=== PATIENT | female | born 1995 | race Caucasian/White ===

== ENCOUNTER 2018-02-28 17:55 | Outpatient (CLI) | payer BC, OTHER ==
[2018-02-28 18:30] VITALS: RESP 16; TEMP 97.4
[2018-02-28 19:45] VITALS: BP 108/61; PULSE 103
--- NOTE | 2018-03-01 11:23 | P.MSEPDOC ---
Presenting Problems - Arrival Data Date of Arrival on Unit: 02/28/18 Time of Arrival on Unit: 18:01 Mode of Transport: Ambulatory - Complaint OB-Reason for Admission/Chief Complaint: Possible Onset of Labor, Pain Medical History - Information : 2 Para: 1 Term: 0 : 1 Abortions: Spontaneous or Elective: 0 Number of Living Children: 1 - Gestational Age Gestational Age by LESLI (wks/days): 33 Weeks and 0 Days - History Complications: Prior Review of Systems - Review of Systems Constitutional: No problems Breast: No problems ENT: No problems Cardiovascular: No problems Respiratory: No problems Gastrointestinal: No problems Genitourinary: No problems Musculoskeletal: No problems Neurological: No problems Skin: No problems Vital Signs - Temperature Temperature: 97.4 F Temperature Source: Tympanic - Pulse Right Brachial Pulse Rate: 103 Pulse Assessment Method: Automatic Cuff - Respirations Respiratory Rate: 16 Oxygen Delivery Method: Room Air - Blood Pressure Right Arm Blood Pressure: 108/61 Blood Pressure Mean: 76 Blood Pressure Source: Automatic Cuff Medical Screen Scoring (Pre) - Cervical Exam Dilation: 0 cm = 0 Membranes: Intact - Uterine Contractions Frequency: N/A Duration: N/A Intensity: N/A - Maternal Vital Signs Maternal Temperature: N/A Maternal Blood Pressure: N/A Signs of Preeclampsia: N/A Maternal Respirations: N/A - Pain Assessment Pain Location and Character: Abdomen Pain Scale Used: Numeric (1 - 10) Pain Intensity: 6 Pain Management Goal: 2 Pain Description: *Acute Pain Radiation Location: na Pain Frequency: Intermittent Pain Duration: 15 Pain Duration Units: Minutes Pain Behavior: Vocalization Pain Aggravating Factors: None Non-Pharmacological Interventions: Position/Reposition, Relaxation Technique - Assessment Baseline FHR: 155 Heart Rate - NICHD Category: Category I (Normal) = 0 NST: Reactive Position: N/A Station: N/A - Total Score Total Score (Pre): 0 - Level of Risk Level of Risk: Low (0-5) Physician Notification (Pre) - Physician Notified Physician Notified Date: 02/28/18 Physician Notified Time: 18:15 Physician/Practitioner Notifed:: Dr. Diaz Spoke With: Dr. Diaz Medical Screen Scoring (Post) - Cervical Exam Dilation: Exam Deferred Effacement: Exam Deferred Membranes: Intact - Uterine Contractions Frequency: N/A Duration: N/A Intensity: N/A - Maternal Vital Signs Maternal Temperature: N/A Maternal Blood Pressure: N/A Signs of Preeclampsia: N/A - Pain Assessment Pain Location and Character: Generalized Pain Scale Used: Numeric (1 - 10) Pain Intensity: 1 Pain Management Goal: 0 Pain Description: *Acute, Cramping Pain Frequency: Intermittent Pain Duration Units: Minutes Pain Behavior: Vocalization - Maternal Trauma Maternal Trauma: N/A - Assessment Heart Rate: 145 Heart Rate - NICHD Category: Category I (Normal) = 0 NST: Reactive Position: N/A Station: N/A - Total Score Total Score (Post): 0 - Post Treatment Level of Risk Post Treatment Level of Risk: Low (0-5) Physician Notification (Post) - Notification Comment Comment: FFN negative. PT clear for discharge home per physician. Disposition - Disposition OB Disposition: Discharge to home Discharge Date: 02/28/18 Discharge Time: 19:32 I agree with the RN Medical Screening Exam: Yes Risk & Benefit of care provided described in d/c instruction: Yes Diagnosis: FALSE LABOR BEFORE 37 COMPLETED WEEKS OF GEST, THIRD TRI
== END 2018-02-28 19:32 | disposition home or self-care (01) ==
LOC: FBPOP 17:55
PROVIDERS: ATTEND Obstetrics & Gynecology
DX: O47.03 False labor before 37 completed weeks of gestation, third trimester (principal); Z3A.33 33 weeks gestation of pregnancy
CPT/HCPCS: 59025; 82731; 99213

== ENCOUNTER 2018-04-09 03:05 | Inpatient (IN) | payer BC, OTHER ==
[2018-04-09] MEDS ORDERED: OXYTOCIN 10 UNIT/ML 1 ML VIAL IM PRN (03:39)
[2018-04-09] MEDS ORDERED: CARBOPROST TROMETHAMINE 250 MCG/ML 1 ML AMP IM PRN (03:39)
[2018-04-09] MEDS ORDERED: LIDOCAINE 1% (PF) 10 MG/ML (30 ML SDV) SQ PRN (03:39)
[2018-04-09] MEDS ORDERED: TERBUTALINE 1 MG/ML VIAL SQ PRN (03:39)
[2018-04-09] MEDS ORDERED: METHYLERGONOVINE 0.2 MG/ML 1 ML AMP IM PRN (03:39)
[2018-04-09] MEDS ORDERED: BUTORPHANOL 1 MG/ML 1 ML VIAL IV PRN (03:40)
[2018-04-09 04:12] VITALS: BMI 32.9
[2018-04-09] MEDS: LACTATED RINGERS 1,000 ML IV SCH ×3 (04:22→14:55)
[2018-04-09 04:33] LABS: Basophils % (A) 0 %; Eosinophils # (A) 0.1 k/uL (0-0.7); Eosinophils % (A) 0 %; HGB 10.6 gm/dL (11.4-16.0); Hypochromasia Slight; Lymphocytes # (A) 2.2 k/uL (1.0-4.8); Lymphocytes % (A) 18 %; MCH 23.6 pg (25.0-35.0); MCHC 33.2 g/dL (31.0-37.0); MCV 71.1 fL (80.0-100.0); Mean Platelet Volume 7.8; Microcytosis Moderate; Monocytes # (A) 0.7 k/uL (0-1.0); Monocytes % (A) 6 %; Neutrophils % (A) 74 %; Platelet Count 282 k/uL (150-450); Poikilocytosis Slight; RBC 4.51 m/uL (3.80-5.40); RDW 15.7 % (11.5-15.5); WBC 12.1 k/uL (3.8-10.6)
--- NOTE | 2018-04-09 05:07 | P.HPOB ---
History of Present Illness H&P Date: 04/09/18 Chief Complaint: Leaking fluid and contractions. This patient is a pleasant 22-year-old 2 para 1 female estimated date of confinement 04/18/2018 estimated gestational age 38-5/7 weeks who presents to labor and delivery with complaint a gush of fluid at approximately 2:00 this morning. Patient's had a previous section with her first at 36 weeks secondary to an active herpes outbreak. Patient did receive progesterone since approximately 16 weeks in this . Patient has requested this and we have previously discussed benefits and risks. Patient has not had any recent HSV outbreaks and has been on prophylactic acyclovir since 36 weeks. Patient is now found to be in early labor with spontaneous rupture membranes. care otherwise has been uncomplicated. Review of Systems Gastrointestinal: Reports heartburn Genitourinary: Reports Menstruation: Reports amenorrhea Past Medical History Past Medical History: No Reported History History of Any Multi-Drug Resistant Organisms: None Reported Past Surgical History: Section Past Anesthesia/Blood Transfusion Reactions: No Reported Reaction Past Psychological History: No Psychological Hx Reported Smoking Status: Never smoker Past Alcohol Use History: Occasional Past Drug Use History: None Reported - Past Family History Father Family Medical History: No Reported History Medications and Allergies Home Medications Medication Instructions Recorded Confirmed Type Acyclovir 400 mg PO TID 04/09/18 04/09/18 History Pnv No.95/Ferrous Fum/Folic AC 1 each PO DAILY 04/09/18 04/09/18 History [ Multivitamin Tablet] Allergies Allergy/AdvReac Type Severity Reaction Status Date / Time codeine Allergy Nausea & Verified 04/09/18 03:17 Vomiting Exam Vital Signs Temp Pulse Resp BP Pulse Ox 04/09/18 03:39 97.3 F L 115 H 15 114/75 97 04/09/18 03:35 97.3 F L 115 H 16 114/75 Intake and Output 04/08/18 04/08/18 04/09/18 14:59 22:59 06:59 Other: Weight 87.09 kg - OBG Physical Exam Abdomen: bowel sounds normal, no diffuse tenderness, no bruit present, no guarding noted, no hepatomegaly, no splenomegaly, no mass Vulva: both: normal Vagina: normal moisture, no discharge Cervix: no lesion (Cervix is 2-3 cm with 2% effaced -2 station with gross rupture membranes.), no discharge Uterus: enlarged (Fundal height in the office is 38 cm.) Results labs show she is be positive, rubella immune, RPR nonreactive, hepatitis B negative, group B strep was negative, most recent ultrasound on March 14 showed estimated weight at 6 lbs. 3 oz. with normal growth. Result Diagrams: 04/09/18 04:20 Abnormal Lab Results - Last 24 Hours (Table) 04/09/18 Range/Units 04:20 WBC 12.1 H (3.8-10.6) k/uL Hgb 10.6 L (11.4-16.0) gm/dL Hct 32.0 L (34.0-46.0) % MCV 71.1 L (80.0-100.0) fL MCH 23.6 L (25.0-35.0) pg RDW 15.7 H (11.5-15.5) % Neutrophils # 9.0 H (1.3-7.7) k/uL Assessment and Plan Assessment: This is a pleasant 22-year-old 2 para 1 female 38-5/7 weeks' gestation with spontaneous rupture membranes in early labor. Patient's had a previous section for active HSV outbreak and has requested . She and I discussed vaginal after section the benefits and risks including risks of uterine rupture and maternal/ compromise. Patient wishes to proceed at this time. Patient understands that I will be here until approximately noon today and then Dr. Chapman will be taken over for her labor at that time. (1) SROM (spontaneous rupture of membranes) Current Visit: Yes Status: Acute Code(s): [id number] - SNOMED Code(s): 270769122 (2) Previous delivery affecting Current Visit: Yes Status: Acute Code(s): O34.219 - MATERNAL CARE FOR UNSP TYPE SCAR FROM PREVIOUS DEL SNOMED Code(s): 453306082
--- NOTE | 2018-04-09 05:11 | P.MSEPDOC ---
Presenting Problems - Arrival Data Date of Arrival on Unit: 04/09/18 Time of Arrival on Unit: 03:05 Mode of Transport: Wheelchair - Complaint OB-Reason for Admission/Chief Complaint: Rule Out SROM Medical History - Information : 2 Para: 1 Term: 0 : 0 Abortions: Spontaneous or Elective: 0 Number of Living Children: 1 - Gestational Age Gestational Age by LESLI (wks/days): 38 Weeks and 5 Days - History Sexually Transmitted Diseases: HSV Review of Systems - Review of Systems Constitutional: No problems Breast: No problems ENT: No problems Cardiovascular: No problems Respiratory: No problems Gastrointestinal: No problems Genitourinary: No problems Musculoskeletal: No problems Neurological: No problems Skin: No problems Vital Signs - Temperature Temperature: 97.3 F Temperature Source: Temporal Artery Scan - Pulse Right Brachial Pulse Rate: 115 Pulse Assessment Method: Automatic Cuff - Respirations Respiratory Rate: 15 Oxygen Delivery Method: Room Air O2 Sat by Pulse Oximetry: 97 - Blood Pressure Right Arm Blood Pressure: 114/75 Blood Pressure Mean: 88 Blood Pressure Source: Automatic Cuff Medical Screen Scoring (Pre) - Cervical Exam Dilation: 1-3 cm = 1 Membranes: Ruptured = 3 - Uterine Contractions Frequency: > or = 36 weeks =2 Duration: N/A Intensity: N/A - Maternal Vital Signs Maternal Temperature: N/A Maternal Blood Pressure: N/A Signs of Preeclampsia: N/A Maternal Respirations: N/A - Pain Assessment Pain Location and Character: Lower, Abdomen Pain Scale Used: Numeric (1 - 10) Pain Intensity: 4 Pain Description: Cramping Pain Frequency: Intermittent Pain Duration Units: Minutes Pain Behavior: Facial Grimacing Pain Aggravating Factors: Contractions - Maternal Trauma Maternal Trauma: N/A - Assessment Baseline FHR: 135 Heart Rate - NICHD Category: Category I (Normal) = 0 NST: Reactive Position: N/A - Total Score Total Score (Pre): 6 - Level of Risk Level of Risk: Medium (6-9) Physician Notification (Pre) - Physician Notified Physician Notified Date: 04/09/18 Physician Notified Time: 03:35 Physician/Practitioner Notifed:: Dr. Fulton Spoke With: Dr. Fulton New Order Received: Yes - Notification Comment Comment: Dr. Fulton given report on pt in triage. positive amnisure, vag exam of. 1.5/60/-2. . Orders recieved to admit pt. pt may have stadol for pain 1 mg q 2 hrs. No pitocin at this time. Disposition - Disposition OB Disposition: Admit I agree with the RN Medical Screening Exam: Yes Risk & Benefit of care provided described in d/c instruction: Yes Diagnosis: ENCOUNTER FOR FULL-TERM UNCOMPLICATED DELIVERY
[2018-04-09] MEDS: OXYTOCIN 20 UNITS/1000 ML NS 1,000 ML IV SCH ×2 (06:07→19:41)
[2018-04-09] MEDS ORDERED: ROPIVACAINE 100 MG, fentaNYL (PF) 200 MCG in SODIUM CHLORIDE 0.9% 76 ML EPIDURAL ONE (12:22)
[2018-04-09] MEDS ORDERED: AMPICILLIN 2,000 MG in SODIUM CHLORIDE 0.9% 100 ML IVPB STA (16:57)
[2018-04-09] MEDS ORDERED: SIMETHICONE 80 MG CHEWABLE PO PRN (18:57)
[2018-04-09] MEDS ORDERED: OXYTOCIN 20 UNITS/1000 ML NS 1,000 ML IV SCH (18:57)
[2018-04-09] MEDS ORDERED: HYDROCORTISONE 2.5% RECTAL CREAM 30 GM TUBE RECTAL PRN (18:57)
[2018-04-09] MEDS ORDERED: diphenhydrAMINE 25 MG CAP PO PRN (18:57)
[2018-04-09] MEDS ORDERED: BISACODYL 10 MG SUPP RECTAL PRN (18:57)
[2018-04-09] MEDS ORDERED: LANOLIN CREAM 5 GM TUBE TOPICAL PRN (18:57)
[2018-04-09] MEDS ORDERED: WITCH HAZEL 1 EACH MED..PAD TOPICAL PRN (18:57)
[2018-04-09] MEDS ORDERED: diphenhydrAMINE 50 MG/ML 1 ML VIAL IVP PRN (18:57)
[2018-04-09] MEDS ORDERED: BENZOCAINE/MENTHOL SPRAY 1 GM/SPRAY AEROSOL TOPICAL PRN (18:57)
[2018-04-09] MEDS ORDERED: ZOLPIDEM 5 MG TAB PO PRN (18:57)
--- NOTE | 2018-04-09 19:22 | P.PROBDLV ---
Vaginal Delivery Note - . Vaginal Delivery Note: 22 year old presents at 38 weeks 5 days with spontaneous rupture of membranes at 1:55 AM. She is amaya irregularly, heart tones 130- 135 with moderate variability and reactive. When she presented to the hospital her cervix was 2-3 cm dilated. Pitocin was started. When she was uncomfortable she got one dose of Stadol and then did get an epidural when she was making cervical change. Her cervix was completely dilated at 1819. She pushed, and delivered a viable male at 185. Head delivered OA, anterior shoulder delivered gentle downward guidance followed by posterior shoulder and rest of body. Nose and mouth bulb suctioned, cord clamped and cut , placed on mother's abdomen. Apgars 9, 9, weight 8 lbs. 2 oz. Placenta delivered spontaneously, intact with three-vessel cord at 1858. Vagina , cervix, and perineum were inspected. Third degree midline laceration was repaired with 2-0 and 3-0 Vicryl. Estimated blood loss 200 mL. Mother and baby in stable condition.
[2018-04-09] MEDS: SENNOSIDES-DOCUSATE SODIUM 1 EACH TAB PO SCH (20:20)
[2018-04-09] MEDS: IBUPROFEN 600 MG TAB PO PRN (20:21)
[2018-04-09] MEDS ORDERED: AMPICILLIN 1,000 MG in SODIUM CHLORIDE 0.9% 50 ML IVPB SCH (21:00)
[2018-04-10] MEDS: IBUPROFEN 600 MG TAB PO PRN ×3 (05:09→22:00)
--- NOTE | 2018-04-10 06:10 | P.PNOBGVD ---
Subjective - Subjective Patient reports: Reports appetite normal, Reports voiding normally, Reports pain well controlled, Reports ambulating normally : doing well Objective - Latest Vital Signs Latest vital signs: Vital Signs Temp Pulse Resp BP Pulse Ox 04/10/18 04:00 98 F 112 H 16 114/67 04/10/18 00:00 106 H 16 104/64 04/09/18 21:21 112 H 16 126/73 04/09/18 20:51 108 H 17 122/60 04/09/18 20:21 115 H 16 121/62 04/09/18 20:06 114 H 15 120/52 04/09/18 19:51 113 H 16 116/58 04/09/18 19:36 115 H 16 114/58 04/09/18 19:21 98.4 F 125 H 16 116/56 99 Intake and Output 04/09/18 04/09/18 04/10/18 14:59 22:59 06:59 Intake Total 40.7 Output Total 500 400 Balance -500 -359.3 Intake: Intake, IV Titration 40.7 Amount Oxytocin 20 Units/1000 ml 40.7 Ns 1,000 ml @ 1 MILLIUNIT/MIN 3 mls/hr IV .Q24H TAMMY Rx#:[id number] Output: Urine 500 Estimated Blood Loss 400 Other: # Voids 1 1 # Bowel Movements 1 - Exam Lungs: bilateral: normal Chest: Normal S1, Normal S2 Extremities: Present: normal Abdomen: Present: normal appearance, soft Uterus: Present: normal, firm Assessment and Plan Assessment: day #1. Patient is resting without new complaints. Vital signs are stable and she is afebrile. Uterus is firm nontender she's having normal lochia. Impression is a normal course. Plan is to continue routine care most likely discharge home tomorrow (1) SROM (spontaneous rupture of membranes) Current Visit: Yes Status: Acute Code(s): [id number] - SNOMED Code(s): 141722906 (2) Previous delivery affecting Current Visit: Yes Status: Acute Code(s): O34.219 - MATERNAL CARE FOR UNSP TYPE SCAR FROM PREVIOUS DEL SNOMED Code(s): 200762549
[2018-04-10] MEDS: ACETAMINOPHEN TAB 325 MG TAB PO PRN (08:40)
[2018-04-10] MEDS: SENNOSIDES-DOCUSATE SODIUM 1 EACH TAB PO SCH ×2 (08:40→22:43)
--- NOTE | 2018-04-10 17:41 | P.PN ---
Progress Note - Text Progress Note Date: 04/10/18 Patient has requested to go home this evening. Vital signs are stable she is afebrile. Patient is having normal lochia. Patient's felt to be stable for discharge home follow up with me in 6 weeks.
--- NOTE | 2018-04-10 17:47 | P.DS ---
Providers Date of admission: 04/09/18 03:36 Expected date of discharge: 04/10/18 Attending physician: Claude Fulton Primary care physician: Claude Fulton - Discharge Diagnosis(es) (1) SROM (spontaneous rupture of membranes) Current Visit: Yes Status: Acute (2) Previous delivery affecting Current Visit: Yes Status: Acute Hospital Course: Please see dictated H&P for intimate details of this patient's admission. Brief summary this is a pleasant 22-year-old 2 para 1 female 38-5/7 weeks' gestation who is admitted to labor and delivery with complaints of gush of fluid and contractions. Patient's had a previous and desired to have a . Patient went on to have a successful vaginal after section for viable male infant. Please see dictated delivery note. Patient later on day 1 wanted to go home as felt be stable for discharge home follow up with me in 6 weeks. Procedures: Vaginal after section Patient Condition at Discharge: Good Plan - Discharge Summary New Discharge Prescriptions: New Ibuprofen [Motrin] 600 mg PO Q6HR PRN #40 tab PRN Reason: Mild Pain Or Fever >= 100.5 No Action Acyclovir 400 mg PO TID Pnv No.95/Ferrous Fum/Folic AC [ Multivitamin Tablet] 1 each PO DAILY Discharge Medication List Acyclovir 400 mg PO TID 04/09/18 [History] Pnv No.95/Ferrous Fum/Folic AC [ Multivitamin Tablet] 1 each PO DAILY [History] Ibuprofen [Motrin] 600 mg PO Q6HR PRN #40 tab 04/10/18 [Rx] Follow up Appointment(s)/Referral(s): Claude Fulton MD [Primary Care Provider] - 05/21/18 11:15 am Patient Instructions/Handouts: Vaginal Delivery (DC) Activity/Diet/Wound Care/Special Instructions: No intercourse or anything per vagina for 6 weeks. Please call if any fever, chills, excessive vaginal bleeding, and/or abdominal pain. Discharge Disposition: HOME SELF-CARE
[2018-04-11] MEDS: ACETAMINOPHEN TAB 325 MG TAB PO PRN ×2 (03:52→12:10)
[2018-04-11] MEDS: SENNOSIDES-DOCUSATE SODIUM 1 EACH TAB PO SCH (08:10)
[2018-04-11 08:12] VITALS: BP 120/68; PULSE 97; RESP 18; TEMP 97.9
[2018-04-11] MEDS: IBUPROFEN 600 MG TAB PO PRN (08:25)
== END 2018-04-11 13:10 | disposition home or self-care (01) | DRG 775 ==
LOC: FBPOP 03:05 → 4FBP 03:36
PROVIDERS: ADMIT Obstetrics & Gynecology; ATTEND Obstetrics & Gynecology
PROC: 0DQR0ZZ Repair Anal Sphincter, Open Approach (ICD-10-PCS; principal; 2018-04-09)
PROC: 10E0XZZ Delivery of Products of Conception, External Approach (ICD-10-PCS; 2018-04-09)
PROC: 00HU33Z Insertion of Infusion Device into Spinal Canal, Percutaneous Approach (ICD-10-PCS; 2018-04-09)
PROC: 3E0R3BZ Introduction of Anesthetic Agent into Spinal Canal, Percutaneous Approach (ICD-10-PCS; 2018-04-09)
DX: O34.219 Maternal care for unspecified type scar from previous cesarean delivery (principal); O70.20 Third degree perineal laceration during delivery, unspecified; O99.62 Diseases of the digestive system complicating childbirth; R12 Heartburn; Z37.0 Single live birth; Z3A.38 38 weeks gestation of pregnancy; Z88.5 Allergy status to narcotic agent
CPT/HCPCS: 59025; 84112; 85025; 99213

== ENCOUNTER 2020-03-23 11:26 | Outpatient (CLI) | payer BC, OTHER ==
[2020-03-23 13:32] LABS: Appearance,Urine Cloudy (Clear); Bacteria,Urine Rare /hpf; Bilirubin,Urine Negative (Negative); Blood,Urine Trace (Negative); Color,Urine Yellow; Glucose,Urine (UA) Negative (Negative); Ketones,Urine 1+ (Negative); Leukocyte Esterase,Urine Large (Negative); Mucus,Urine Rare /hpf; Nitrite,Urine Negative (Negative); PH, Urine 7.5 (5.0-8.0); Protein,Urine Trace (Negative); RBC,Urine 3 /hpf (0-5); Specific Gravity,Urine 1.014 (1.001-1.035); Squamous Epithelial Cell,Urine 4 /hpf (0-4); Urobilinogen,Urine <2.0 mg/dL (<2.0); WBC,Urine 4 /hpf (0-5)
[2020-03-23 13:56] VITALS: BP 108/71; PULSE 107; RESP 18; TEMP 97.7
--- NOTE | 2020-03-23 17:30 | P.MSEPDOC ---
Presenting Problems - Arrival Data Date of Arrival on Unit: 03/23/20 Time of Arrival on Unit: 11:26 Mode of Transport: Ambulatory - Complaint OB-Reason for Admission/Chief Complaint: Possible Onset of Labor Comment: cramping and lower abdominal pain Medical History - Information : 3 Para: 2 Term: 1 : 1 Abortions: Spontaneous or Elective: 0 Number of Living Children: 2 - Gestational Age Gestational Age by LESLI (wks/days): 31 Weeks and 5 Days - History Complications: Prior , Prior Review of Systems - Review of Systems Constitutional: No problems Breast: No problems ENT: No problems Cardiovascular: No problems Respiratory: No problems Gastrointestinal: No problems Genitourinary: No problems Musculoskeletal: No problems Neurological: No problems Skin: No problems Vital Signs - Temperature Temperature: 97.7 F Temperature Source: Temporal Artery Scan - Pulse Pulse Oximetery Pulse Rate: 107 Pulse Assessment Method: Pulse Oximetry - Respirations Respiratory Rate: 18 Oxygen Delivery Method: Room Air O2 Sat by Pulse Oximetry: 98 - Blood Pressure Right Arm Blood Pressure: 108/71 Blood Pressure Mean: 83 Blood Pressure Source: Automatic Cuff Medical Screen Scoring (Pre) - Cervical Exam Dilation: 0 cm = 0 Effacement: Exam Deferred Membranes: Intact - Uterine Contractions Frequency: < 36 weeks = 6 Duration: > 40 seconds = 2 Intensity: N/A - Maternal Vital Signs Maternal Temperature: N/A Maternal Blood Pressure: N/A Signs of Preeclampsia: N/A Maternal Respirations: N/A - Maternal Trauma Maternal Trauma: N/A - Assessment - Baby A Baseline FHR: 145 Heart Rate - NICHD Category: Category I (Normal) = 0 NST: Reactive Position: N/A - Total Score - Baby A Total Score - Baby A: 8 - Total Score - Baby B Total Score - Baby B: 8 - Total Score - Baby C Total Score - Baby C: 8 - Level of Risk - Baby A Level of Risk - Baby A: Medium (6-9) - Level of Risk - Baby B Level of Risk - Baby B: Medium (6-9) - Level of Risk - Baby C Level of Risk - Baby C: Medium (6-9) Physician Notification (Pre) - Physician Notified Physician Notified Date: 03/23/20 Physician Notified Time: 12:36 New Order Received: Yes - Notification Comment Comment: Dr. Fulton on unit, report given on maternal and status, complaints of. contractions and lower abdominal tightening since noon yesterday. Pt amaya every 3 mins, SVE closed/thick. Orders to send FFN and UA and pt can be discharged if FFN is negative with instructions to increase fluid intake and rest. Dr. Fulton at bedside discussing POC with pt. 1337 Dr. Fulton called and notified of negative FFN and UA results (large. leukocytes, 1+ ketones, trace protein, and trace blood). Pt is also feeling better and. contractions have spaced out. Orders to discharge home and follow up with Dr. Fulton in the office next week. Disposition - Disposition OB Disposition: Discharge to home Discharge Date: 03/23/20 Discharge Time: 13:45 I agree with the RN Medical Screening Exam: Yes Risk & Benefit of care provided described in d/c instruction: Yes Diagnosis: FALSE LABOR BEFORE 37 COMPLETED WEEKS OF GEST, THIRD TRI (Patient complaints of pelvic discomfort and contractions on and off for at least 24 hours. Patient occult twice shows she was instructed to come in but elected to stay home until today. Examination shows her cervix to be closed. fibronectin is negative. heart tones are reassuring. This time there is no evidence of labor. I did discuss with the patient her findings and indications to return to labor and delivery.)
== END 2020-03-23 13:45 | disposition home or self-care (01) ==
LOC: FBPOP 11:26
PROVIDERS: ATTEND Obstetrics & Gynecology
DX: O47.03 False labor before 37 completed weeks of gestation, third trimester (principal); Z3A.31 31 weeks gestation of pregnancy
CPT/HCPCS: 59025; 81001; 82731; 84112; 99213

== ENCOUNTER 2020-05-16 05:50 | Inpatient (IN) | payer BC, OTHER ==
--- NOTE | 2020-05-15 11:22 | P.HPOB ---
History of Present Illness H&P Date: 05/15/20 Chief Complaint: Requested induction of labor. This patient is a pleasant 24 yr female EDC 05/20/2020 estimated gestational age 39 2/7 weeks who presents to L&D requesting induction of labor. Patients 1st delivery was a C/S for PPROM/HSV. Second was a successful . She and I discussed delivery and would like to again. She has been very uncomfortable and is requesting induction. has been uncomplicated. Has been on acyclovir prophylactically due to history prior to 36wks. Review of Systems Genitourinary: Reports Menstruation: Reports amenorrhea Past Medical History Past Medical History: No Reported History History of Any Multi-Drug Resistant Organisms: None Reported Past Surgical History: Section Past Anesthesia/Blood Transfusion Reactions: No Reported Reaction Past Psychological History: No Psychological Hx Reported Smoking Status: Never smoker Past Alcohol Use History: None Reported Past Drug Use History: None Reported - Past Family History Father Family Medical History: No Reported History Medications and Allergies Home Medications Medication Instructions Recorded Confirmed Type Acyclovir 400 mg PO TID 04/09/18 03/23/20 History Pnv No.95/Ferrous Fum/Folic AC 1 each PO DAILY 04/09/18 03/23/20 History [ Multivitamin Tablet] Allergies Allergy/AdvReac Type Severity Reaction Status Date / Time codeine Allergy Nausea & Verified 03/23/20 11:51 Vomiting Exam - OBG Physical Exam Abdomen: bowel sounds normal, no diffuse tenderness, no bruit present, no guarding noted, no hepatomegaly, no splenomegaly, no mass Vulva: both: normal Vagina: normal moisture, no discharge Cervix: no lesion (Cx is the office 1-2/soft), no discharge Uterus: enlarged (Fundal height was 39 cm) Results bloodwork: B positive, Rubella Immune, RPR-HepB negative, Glucola 106, GBS negative. Ultrasound shows normal anatomy, EFW 5#15oz at 35 weeks. Assessment and Plan Assessment: This is a pleasant 24 yr female 39 2/7 weeks with previous successful , requesting induction of labor and repeat . She and I have discussed the induction process and risks/benefits of . (1) 39 weeks gestation of Status: Acute Code(s): Z3A.39 - 39 WEEKS GESTATION OF SNOMED Code(s): 65588066 (2) Previous delivery affecting Status: Acute Code(s): O34.219 - MATERNAL CARE FOR UNSP TYPE SCAR FROM PREVIOUS DEL SNOMED Code(s): 361758752 (3) Elective induction of labor planned Status: Acute Code(s): [id number] - SNOMED Code(s): 193069699
[2020-05-16] MEDS ORDERED: OXYTOCIN 30 UNITS/500 ML NS 30 UNIT in SALINE 1 500ML.BAG IV SCH (05:58)
[2020-05-16] MEDS ORDERED: CARBOPROST TROMETHAMINE 250 MCG/ML 1 ML AMP IM PRN (05:58)
[2020-05-16] MEDS ORDERED: OXYTOCIN 10 UNIT/ML 1 ML VIAL IM PRN (05:58)
[2020-05-16] MEDS ORDERED: LIDOCAINE 0.5% (PF) 5 MG/ML (50 ML SDV) SQ PRN (05:58)
[2020-05-16] MEDS ORDERED: TERBUTALINE 1 MG/ML VIAL SQ PRN (05:58)
[2020-05-16] MEDS ORDERED: METHYLERGONOVINE 0.2 MG/ML 1 ML AMP IM PRN (05:58)
[2020-05-16] MEDS: LACTATED RINGERS 1,000 ML IV SCH ×2 (06:10→10:43)
[2020-05-16 06:47] LABS: Anisocytosis Slight; Basophils % (A) 0 %; Eosinophils # (A) 0.1 k/uL (0-0.7); Eosinophils % (A) 1 %; HCT 33.2 % (34.0-46.0); HGB 10.7 gm/dL (11.4-16.0); Lymphocytes # (A) 2.2 k/uL (1.0-4.8); Lymphocytes % (A) 25 %; MCH 24.4 pg (25.0-35.0); MCHC 32.2 g/dL (31.0-37.0); MCV 75.8 fL (80.0-100.0); Mean Platelet Volume 7.3; Microcytosis Slight; Monocytes # (A) 0.5 k/uL (0-1.0); Monocytes % (A) 6 %; Neutrophils # (A) 5.9 k/uL (1.3-7.7); Neutrophils % (A) 66 %; Platelet Count 244 k/uL (150-450); RBC 4.38 m/uL (3.80-5.40); RDW 16.6 % (11.5-15.5); WBC 8.9 k/uL (3.8-10.6)
[2020-05-16] MEDS ORDERED: BUTORPHANOL 1 MG/ML 1 ML VIAL IV PRN (07:46)
[2020-05-16] MEDS ORDERED: fentaNYL (PF) 50 MCG/ML 5 ML AMP ONE (10:25)
[2020-05-16] MEDS ORDERED: SODIUM CHLORIDE 0.9% 100 ML BAG ONE (10:25)
[2020-05-16] MEDS ORDERED: ROPIVACAINE 5MG/ML 20ML VIAL ONE (10:25)
[2020-05-16] MEDS ORDERED: ROPIVACAINE 100 MG, fentaNYL (PF) 200 MCG in SODIUM CHLORIDE 0.9% 76 ML EPIDURAL ONE (10:51)
[2020-05-16] MEDS ORDERED: BENZOCAINE/MENTHOL SPRAY 1 GM/SPRAY AEROSOL TOPICAL PRN (14:50)
[2020-05-16] MEDS ORDERED: bisacodyL 10 MG SUPP RECTAL PRN (14:50)
[2020-05-16] MEDS ORDERED: ACETAMINOPHEN TAB 325 MG TAB PO PRN (14:50)
[2020-05-16] MEDS ORDERED: OXYTOCIN 20 UNITS/1000 ML NS 1,000 ML IV SCH (14:50)
[2020-05-16] MEDS ORDERED: diphenhydrAMINE 25 MG CAP PO PRN (14:50)
[2020-05-16] MEDS ORDERED: SIMETHICONE 80 MG CHEWABLE PO PRN (14:50)
[2020-05-16] MEDS ORDERED: LANOLIN CREAM 5 GM TUBE TOPICAL PRN (14:50)
[2020-05-16] MEDS ORDERED: ZOLPIDEM 5 MG TAB PO PRN (14:50)
[2020-05-16] MEDS ORDERED: diphenhydrAMINE 50 MG/ML 1 ML VIAL IVP PRN (14:50)
[2020-05-16] MEDS ORDERED: HYDROCORTISONE 2.5% RECTAL CREAM 30 GM TUBE RECTAL PRN (14:50)
--- NOTE | 2020-05-16 16:16 | P.PROBDLV ---
Vaginal Delivery Note - . Vaginal Delivery Note: Normal vaginal delivery viable male Apgars 9 and 9 delivery time is 1445 hrs. Please see dictated H&P for intimate details of this patient's admission. Brief summary this is a pleasant 24-year-old 3 para 2 female 39-3/7 weeks gestation admitted to labor and delivery for requested induction of labor. On admission patient is 2 cm dilated is artificial rupture membranes for clear fluid. Labor is induced with Pitocin per protocol. Patient's labor progressed and she get an epidural for pain control. Patient quickly thereafter continue to get complete pushes the head to the perineum. Posterior perineum was supported we have controlled delivery of 's head over the intact perineum. 's presentation straight occiput anterior presentation. Inspection at this time shows a tight nuchal cord which is doubly clamped cut and then re duced. With gentle downward traction we then have deliver the anterior and posterior shoulder and rest this infant's body. This is a vigorous viable male Apgars are 9 and 9 delivery time was 1445 hrs. After delivery of the the placenta spontaneously delivered intact. Inspection of the perineum shows a first-degree laceration which is repaired with 3-0 Vicryl usual fashion and excellent reapproximation is noted. All counts are correct 3. There are no complications. Infant and mother are stable delivery room.
[2020-05-16] MEDS: IBUPROFEN 600 MG TAB PO PRN ×2 (18:41→23:45)
[2020-05-16] MEDS: SENNOSIDES-DOCUSATE SODIUM 1 EACH TAB PO SCH ×2 (19:01→19:32)
--- NOTE | 2020-05-17 05:52 | P.PNOBGVD ---
Subjective - Subjective Patient reports: Reports appetite normal, Reports voiding normally, Reports pain well controlled, Reports ambulating normally [place]: doing well Objective - Latest Vital Signs Latest vital signs: Vital Signs Temp Pulse Resp BP 05/17/20 00:00 98.3 F 101 H 16 107/70 05/16/20 20:00 98.7 F 109 H 16 110/70 05/16/20 17:00 98.8 F 108 H 15 121/79 05/16/20 16:30 105 H 16 120/57 05/16/20 16:00 112 H 17 112/57 05/16/20 15:45 105 H 17 118/67 05/16/20 15:30 105 H 17 118/67 05/16/20 15:09 100 16 110/60 05/16/20 15:00 98.1 F 98 17 122/57 05/16/20 06:03 96.8 F L 126 H 18 138/70 Intake and Output 05/16/20 05/16/20 05/17/20 14:59 22:59 06:59 Output Total 350 Balance -350 Output: Urine 350 Straight 350 Other: # Voids 1 1 - Exam Lungs: bilateral: normal Chest: Normal S1, Normal S2 Extremities: Present: normal Abdomen: Present: normal appearance, soft Uterus: Present: normal, firm - Labs Labs: Abnormal Lab Results - Last 24 Hours (Table) 05/16/20 Range/Units 06:20 Hgb 10.7 L (11.4-16.0) gm/dL Hct 33.2 L (34.0-46.0) % MCV 75.8 L (80.0-100.0) fL MCH 24.4 L (25.0-35.0) pg RDW 16.6 H (11.5-15.5) % Assessment and Plan Assessment: day #1. Patient is resting without complaints. She would like to go home as long as her baby's bilirubin is okay. Vital signs are stable and she is afebrile. Uterus is firm nontender she's having normal lochia. My impression is a normal course. Plan is to continue routine care and discharge home later today. (1) 39 weeks gestation of Current Visit: No Status: Acute Code(s): Z3A.39 - 39 WEEKS GESTATION OF SNOMED Code(s): 33818092 (2) Previous delivery affecting Current Visit: No Status: Acute Code(s): O34.219 - MATERNAL CARE FOR UNSP TYPE SCAR FROM PREVIOUS DEL SNOMED Code(s): 634269918 (3) Elective induction of labor planned Current Visit: No Status: Acute Code(s): NIN4580 - SNOMED Code(s): 807503569
--- NOTE | 2020-05-17 05:56 | P.DS ---
Providers Date of admission: 05/16/20 05:50 Expected date of discharge: 05/17/20 Attending physician: Claude Fulton Primary care physician: Stated None - Discharge Diagnosis(es) (1) 39 weeks gestation of Current Visit: No Status: Acute (2) Previous delivery affecting Current Visit: No Status: Acute (3) Elective induction of labor planned Current Visit: No Status: Acute Hospital Course: please see dictated H&P for intimate details of this patient's admission. Brief summary is a pleasant 24-year-old 3 para 2 female 39-3/7 weeks gestation who is admitted to labor and delivery for requested induction of labor. Patient subsequently goes on to have a vaginal delivery () of a viable male . Please see dictated delivery note. day #1 patient's stable wishes to go home. Patient's felt be stable for discharge home follow up with me in 6 weeks. Procedures: induction of labor and normal vaginal delivery () Patient Condition at Discharge: Good Plan - Discharge Summary New Discharge Prescriptions: New Ibuprofen [Motrin] 600 mg PO Q6HR PRN #40 tab PRN Reason: Mild Pain Or Fever >= 100.5 No Action Acyclovir 400 mg PO BID Pnv No.95/Ferrous Fum/Folic AC [ Multivitamin Tablet] 1 each PO DAILY Discharge Medication List Acyclovir 400 mg PO BID 04/09/18 [History] Pnv No.95/Ferrous Fum/Folic AC [ Multivitamin Tablet] 1 each PO DAILY 04/09/18 [History] Ibuprofen [Motrin] 600 mg PO Q6HR PRN #40 tab 05/17/20 [Rx] Follow up Appointment(s)/Referral(s): Claude Fulton MD [STAFF PHYSICIAN] - 6 Weeks Patient Instructions/Handouts: Vaginal Delivery (DC) Activity/Diet/Wound Care/Special Instructions: No intercourse or anything per vagina for 6 weeks. Please call if any fever, chills, excessive vaginal bleeding, and/or abdominal pain. Discharge Disposition: HOME SELF-CARE
[2020-05-17] MEDS: SENNOSIDES-DOCUSATE SODIUM 1 EACH TAB PO SCH (07:07)
[2020-05-17] MEDS: IBUPROFEN 600 MG TAB PO PRN ×2 (07:07→12:41)
[2020-05-17 07:21] VITALS: BP 110/72; PULSE 88; RESP 17; TEMP 98.1
== END 2020-05-17 16:10 | disposition home or self-care (01) | DRG 806 ==
LOC: 4FBP 05:50
PROVIDERS: ADMIT Obstetrics & Gynecology; ATTEND Obstetrics & Gynecology
PROC: 0HQ9XZZ Repair Perineum Skin, External Approach (ICD-10-PCS; principal; 2020-05-16)
PROC: 3E033VJ Introduction of Other Hormone into Peripheral Vein, Percutaneous Approach (ICD-10-PCS; principal; 2020-05-16)
PROC: 3E0R3BZ Introduction of Anesthetic Agent into Spinal Canal, Percutaneous Approach (ICD-10-PCS; principal; 2020-05-16)
PROC: 10907ZC Drainage of Amniotic Fluid, Therapeutic from Products of Conception, Via Natural or Artificial Opening (ICD-10-PCS; principal; 2020-05-16)
PROC: 00HU33Z Insertion of Infusion Device into Spinal Canal, Percutaneous Approach (ICD-10-PCS; principal; 2020-05-16)
PROC: 10E0XZZ Delivery of Products of Conception, External Approach (ICD-10-PCS; principal; 2020-05-16)
DX: O34.219 Maternal care for unspecified type scar from previous cesarean delivery (principal); O98.32 Other infections with a predominantly sexual mode of transmission complicating childbirth; Z37.0 Single live birth; O69.1XX0 Labor and delivery complicated by cord around neck, with compression, not applicable or unspecified; A60.09 Herpesviral infection of other urogenital tract; O70.0 First degree perineal laceration during delivery; Z3A.39 39 weeks gestation of pregnancy; Z79.899 Other long term (current) drug therapy; Z88.8 Allergy status to other drugs, medicaments and biological substances
CPT/HCPCS: 85025; 86850; 86900; 86901

== ENCOUNTER → 2024-05-12 | Outpatient (CLI) | payer OTHER | END | disposition home or self-care (01) | LOC: LABWHC1 15:15 | PROVIDERS: ATTEND Obstetrics & Gynecology Obstetrics | DX: O20.0 Threatened abortion | CPT/HCPCS: 36415; 84702 ==

== ENCOUNTER 2024-09-03 17:11 | Emergency (ER) | payer OTHER ==
--- NOTE | 2024-09-03 18:46 | ED ---
SOB HPI - General Chief Complaint: Shortness of Breath Stated Complaint: MIGUEL Time Seen by Provider: 09/03/24 17:57 Source: patient Mode of arrival: ambulatory Limitations: no limitations - History of Present Illness Initial Comments: This patient is a 28-year-old woman who presents to evaluation for shortness of breath and palpitations. The patient states that she had discussed the symptoms with her supervisor [facility] and she was advised to come to emergency department. The patient denies fever or chills. No cough. She is denying chest pain. Symptoms have been intermittently present for 3 days. Patient denies leg pain she does have some mild edema that she attributes to the . MD Complaint: shortness of breath Onset/Timin -: days(s) Severity scale (1-10): 0 Consistency: constant Improves With: nothing Worsens With: nothing Associated Symptoms: palpitations Treatments Prior to Arrival: none - Related Data Home Oxygen Therapy: No Home Medications Medication Instructions Recorded Confirmed Acyclovir 400 mg PO BID 04/09/18 05/16/20 Pnv No.95/Ferrous Fum/Folic AC 1 each PO DAILY 04/09/18 05/16/20 [ Multivitamin Tablet] Previous Rx's Medication Instructions Recorded Ibuprofen [Motrin] 600 mg PO Q6HR PRN #40 tab 05/17/20 Allergies Allergy/AdvReac Type Severity Reaction Status Date / Time codeine Allergy Nausea & Verified 05/16/20 05:54 Vomiting Review of Systems ROS Statement: Those systems with pertinent positive or pertinent negative responses have been documented in the HPI. ROS Other: All systems not noted in ROS Statement are negative. Constitutional: Denies: fever, chills, weakness ENT: Denies: congestion Respiratory: Reports: dyspnea. Denies: cough, wheezes, hemoptysis Cardiovascular: Reports: dyspnea on exertion, edema. Denies: chest pain, palpitations, orthopnea, syncope Gastrointestinal: Denies: abdominal pain, nausea, vomiting, diarrhea Genitourinary: Denies: dysuria, hematuria Musculoskeletal: Denies: back pain Skin: Denies: rash Neurological: Denies: headache, weakness Past Medical History Past Medical History: No Reported History History of Any Multi-Drug Resistant Organisms: None Reported Past Surgical History: Section Additional Past Surgical History / Comment(s): [place] tooth extraction Past Anesthesia/Blood Transfusion Reactions: No Reported Reaction Past Psychological History: Anxiety Smoking Status: Never smoker Past Alcohol Use History: None Reported Past Drug Use History: None Reported - Past Family History Father Family Medical History: No Reported History General Exam Limitations: no limitations General appearance: alert, in no apparent distress Head exam: Present: atraumatic, normocephalic Eye exam: Present: normal appearance. Absent: scleral icterus, conjunctival injection ENT exam: Present: normal oropharynx Neck exam: Present: normal inspection Respiratory exam: Present: normal lung sounds bilaterally. Absent: respiratory distress, wheezes, rales, rhonchi, stridor, accessory muscle use Cardiovascular Exam: Present: normal rhythm, tachycardia, systolic murmur. Absent: diastolic murmur, rubs, gallop GI/Abdominal exam: Present: soft. Absent: distended, tenderness, guarding, rebound, rigid, mass Extremities exam: Present: normal inspection, normal capillary refill, pedal edema (Trace edema at the ankles bilaterally.), other (No palpable cord or Homans' sign). Absent: calf tenderness Back exam: Present: normal inspection Neurological exam: Present: alert Skin exam: Present: warm, dry, intact, normal color. Absent: rash Course Vital Signs 09/03/24 09/03/24 09/03/24 17:48 18:05 19:40 Temperature 98 F Pulse Rate 114 H 87 Respiratory 24 20 18 Rate Blood Pressure 127/68 122/70 O2 Sat by Pulse 97 97 Oximetry 09/03/24 09/03/24 22:00 22:39 Temperature 97.9 F Pulse Rate 96 88 Respiratory 18 16 Rate Blood Pressure 106/65 110/56 O2 Sat by Pulse 98 99 Oximetry Medical Decision Making - Medical Decision Making The patient had duplex Doppler that I interpreted as negative for evidence of DVT The patient had CT scan of the chest that I interpreted as negative for infiltrate, no central pulmonary embolism Was pt. sent in by a medical professional or institution (, PA, ADJUNCT PSYCHOLOGY FACULTY MEMBER, urgent care, hospital, or custodial...) When possible be specific @ -[Patient was advised to be seen in emergency department by her supervisor [employer] Did you speak to anyone other than the patient for history (EMS, parent, family, police, friend...)? What history was obtained from this source @ -[No] Did you review nursing and triage notes (agree or disagree)? Why? @ -[I reviewed and agree with nursing and triage notes] Were old charts reviewed (outside hosp., previous admission, EMS record, old EKG, old radiological studies, urgent care reports/EKG's, custodial records)? Report findings @ -[No old charts were reviewed] Differential Diagnosis (chest pain, altered mental status, abdominal pain women, abdominal pain men, vaginal bleeding, weakness, fever, dyspnea, syncope, headache, dizziness, GI bleed, back pain, seizure, CVA, palpatations, mental health, musculoskeletal)? @ -[Differential Dyspnea: Coronary syndrome, arrhythmia, tamponade, asthma, COPD, pulmonary embolism, pneumonia, pneumothorax, pulmonary effusion, anaphylaxis, diabetic ketoacidosis, flailed chest, pulmonary contusion, diaphragmatic rupture, anemia, neuromuscular, this is not meant to be an all-inclusive list. EKG interpreted by me (3pts min.). @ -[I interpreted as above] X-rays interpreted by me (1pt min.). @ -[ CT interpreted by me (1pt min.). @ -[I interpreted as above U/S interpreted by me (1pt. min.). @ -[I interpreted as above What testing was considered but not performed or refused? (CT, X-rays, U/S, labs)? Why? @ -[None] What meds were considered but not given or refused? Why? @ -[None] Did you discuss the management of the patient with other professionals (professionals i.e. , PA, ADJUNCT PSYCHOLOGY FACULTY MEMBER, lab, RT, psych nurse, renal social worker, rn internal medicine, teacher, alumni relations officer, oil field caser)? Give summary @ -[No] Was smoking cessation discussed for >3mins.? @ -[No] Was critical care preformed (if so, how long)? @ -[No] Were there social determinants of health that impacted care today? How? (Homelessness, low income, unemployed, alcoholism, drug addiction, transportation, low edu. Level, literacy, decrease access to med. care, skilled nursing, rehab)? @ -[No] Was there de-escalation of care discussed even if they declined (Discuss DNR or withdrawal of care, Hospice)? DNR status @ -[No] What co-morbidities impacted this encounter? (DM, HTN, Smoking, COPD, CAD, Cancer, CVA, ARF, Chemo, Hep., AIDS, mental health diagnosis, sleep apnea, morbid obesity)? @ -[ Was patient admitted / discharged? Hospital course, mention meds given and route, prescriptions, significant lab abnormalities, going to OR and other pertinent info. @ -[Patient is feeling better following evaluation here she will follow with her supervisor [facility]. Undiagnosed new problem with uncertain prognosis? @ -[No] Drug Therapy requiring intensive monitoring for toxicity (Heparin, Nitro, Insulin, Cardizem)? @ -[No] Were any procedures done? @ -[No] Diagnosis/symptom? @ -Acute dyspnea Acute, or Chronic, or Acute on Chronic? @ -[Acute Uncomplicated (without systemic symptoms) or Complicated (systemic symptoms)? @ -[Uncomplicated Side effects of treatment? @ -[No] Exacerbation, Progression, or Severe Exacerbation? @ -[No] Poses a threat to life or bodily function? How? (Chest pain, [place], [place], pneumonia, PE, COPD, DKA, ARF, appy, cholecystitis, CVA, Diverticulitis, Homicidal, Suicidal, threat to staff... and all critical care pts) @ -[Low risk All treatments are based on ideal body weight as in ED triage - Lab Data Result diagrams: 09/03/24 18:40 09/03/24 19:24 Lab Results 09/03/24 09/03/24 09/03/24 Range/Units 18:40 18:40 18:40 WBC 12.2 H (3.8-10.6) k/uL RBC 4.26 (3.80-5.40) m/uL Hgb 11.9 (11.4-16.0) gm/dL Hct 35.9 (34.0-46.0) % MCV 84.2 (80.0-100.0) fL MCH 28.0 (25.0-35.0) pg MCHC 33.3 (31.0-37.0) g/dL RDW 13.7 (11.5-15.5) % Plt Count 284 (150-450) k/uL MPV 7.2 Neutrophils % 71 % Lymphocytes % 21 % Monocytes % 5 % Eosinophils % 2 % Basophils % 0 % Neutrophils # 8.7 H (1.3-7.7) k/uL Lymphocytes # 2.5 (1.0-4.8) k/uL Monocytes # 0.6 (0-1.0) k/uL Eosinophils # 0.2 (0-0.7) k/uL Basophils # 0.0 (0-0.2) k/uL PT 9.3 L (10.0-12.5) sec INR 0.8 (<1.2) APTT 19.3 L (22.0-30.0) sec D-Dimer 1.14 H (<0.60) mg/L FEU Sodium (137-145) mmol/L Potassium (3.5-5.1) mmol/L Chloride (98-107) mmol/L Carbon Dioxide (22-30) mmol/L Anion Gap mmol/L BUN (7-17) mg/dL Creatinine (0.52-1.04) mg/dL Est GFR (CKD-EPI)AfAm (>60 ml/min/1.73 sqM) Est GFR (CKD-EPI)NonAf (>60 ml/min/1.73 sqM) Glucose (74-99) mg/dL Plasma Lactic Acid Ricardo 1.6 (0.7-2.0) mmol/L Calcium (8.4-10.2) mg/dL Total Bilirubin (0.2-1.3) mg/dL AST (14-36) U/L ALT (4-34) U/L Alkaline Phosphatase (38-126) U/L Troponin I (0.000-0.034) ng/mL NT-Pro-B Natriuret Pep pg/mL Total Protein (6.3-8.2) g/dL Albumin (3.5-5.0) g/dL Urine Color Urine Appearance (Clear) Urine pH (5.0-8.0) Ur Specific [place] (1.001-1.035) Urine Protein (Negative) Urine Glucose (UA) (Negative) Urine Ketones (Negative) Urine Blood (Negative) Urine Nitrite (Negative) Urine Bilirubin (Negative) Urine Urobilinogen (<2.0) mg/dL Ur Leukocyte Esterase (Negative) Urine RBC (0-5) /hpf Urine WBC (0-5) /hpf Ur Squamous Epith Cells (0-4) /hpf Urine Bacteria (None) /hpf Urine Mucus (None) /hpf 09/03/24 09/03/24 09/03/24 Range/Units 19:24 19:24 19:31 WBC (3.8-10.6) k/uL RBC (3.80-5.40) m/uL Hgb (11.4-16.0) gm/dL Hct (34.0-46.0) % MCV (80.0-100.0) fL MCH (25.0-35.0) pg MCHC (31.0-37.0) g/dL RDW (11.5-15.5) % Plt Count (150-450) k/uL MPV Neutrophils % % Lymphocytes % % Monocytes % % Eosinophils % % Basophils % % Neutrophils # (1.3-7.7) k/uL Lymphocytes # (1.0-4.8) k/uL Monocytes # (0-1.0) k/uL Eosinophils # (0-0.7) k/uL Basophils # (0-0.2) k/uL PT (10.0-12.5) sec INR (<1.2) APTT (22.0-30.0) sec D-Dimer (<0.60) mg/L FEU Sodium 135 L (137-145) mmol/L Potassium 3.9 (3.5-5.1) mmol/L Chloride 106 (98-107) mmol/L Carbon Dioxide 19 L (22-30) mmol/L Anion Gap 10 mmol/L BUN 7 (7-17) mg/dL Creatinine 0.44 L (0.52-1.04) mg/dL Est GFR (CKD-EPI)AfAm >90 (>60 ml/min/1.73 sqM) Est GFR (CKD-EPI)NonAf >90 (>60 ml/min/1.73 sqM) Glucose 88 (74-99) mg/dL Plasma Lactic Acid Ricardo (0.7-2.0) mmol/L Calcium 9.2 (8.4-10.2) mg/dL Total Bilirubin 0.2 (0.2-1.3) mg/dL AST 14 (14-36) U/L ALT 8 (4-34) U/L Alkaline Phosphatase 99 (38-126) U/L Troponin I <0.012 (0.000-0.034) ng/mL NT-Pro-B Natriuret Pep 66 pg/mL Total Protein 6.5 (6.3-8.2) g/dL Albumin 3.7 (3.5-5.0) g/dL Urine Color Colorless Urine Appearance Cloudy H (Clear) Urine pH 6.5 (5.0-8.0) Ur Specific [place] 1.005 (1.001-1.035) Urine Protein Negative (Negative) Urine Glucose (UA) Negative (Negative) Urine Ketones Negative (Negative) Urine Blood Trace H (Negative) Urine Nitrite Negative (Negative) Urine Bilirubin Negative (Negative) Urine Urobilinogen <2.0 (<2.0) mg/dL Ur Leukocyte Esterase Small H (Negative) Urine RBC 1 (0-5) /hpf Urine WBC 6 H (0-5) /hpf Ur Squamous Epith Cells 10 H (0-4) /hpf Urine Bacteria Rare H (None) /hpf Urine Mucus Rare H (None) /hpf - EKG Data -: EKG Interpreted by Pa EKG shows normal: sinus rhythm, axis (Normal), intervals (Normal), QRS complexes (Normal), ST-T waves (Normal) Rate: normal (Rate 92 bpm) Disposition Clinical Impression: Dyspnea Disposition: HOME SELF-CARE Condition: Good Instructions (If sedation given, give patient instructions): Dyspnea (ED) Is patient prescribed a controlled substance at d/c from ED?: No Referrals: Diana Cooper DO [Primary Care Provider] - 1-2 days
[2024-09-03 18:51] LABS: Basophils % (A) 0 %; Eosinophils # (A) 0.2 k/uL (0-0.7); Eosinophils % (A) 2 %; HCT 35.9 % (34.0-46.0); HGB 11.9 gm/dL (11.4-16.0); Lymphocytes # (A) 2.5 k/uL (1.0-4.8); Lymphocytes % (A) 21 %; MCHC 33.3 g/dL (31.0-37.0); MCV 84.2 fL (80.0-100.0); Mean Platelet Volume 7.2; Monocytes # (A) 0.6 k/uL (0-1.0); Monocytes % (A) 5 %; Neutrophils # (A) 8.7 k/uL (1.3-7.7); Neutrophils % (A) 71 %; Platelet Count 284 k/uL (150-450); RBC 4.26 m/uL (3.80-5.40); RDW 13.7 % (11.5-15.5); WBC 12.2 k/uL (3.8-10.6)
--- NOTE | 2024-09-03 19:25 | US ---
EXAMINATION TYPE: US venous doppler duplex LE BI DATE OF EXAM: 09/03/2024 7:19 PM COMPARISON: NONE CLINICAL INDICATION: Female, 28 years old with history of dyspnea, possible DVT/PE; Patient shortness of breath. 23 weeks . No hx dvt. No swelling, pain, or redness, TECHNIQUE: The lower extremity deep venous system is examined utilizing real time linear array sonog ngoc with graded compression, color doppler sonography, and spectral doppler. SIDE PERFORMED: Bilateral FINDINGS: VESSELS IMAGED: Common Femoral Vein Deep Femoral Vein Greater Saphenous Vein * Femoral Vein Popliteal Vein Small Saphenous Vein * Proximal Calf Veins (* superficial vessels) Right Leg: Appears negative for DVT, Color Doppler imaging shows patency of the vessels. Spectral wa veforms are within normal limits. Left Leg: Appears negative for DVT, Color Doppler imaging shows patency of the vessels. Spectral wav eforms are within normal limits. IMPRESSION: No ultrasound evidence for deep venous thrombosis. [facility], , 09/03/2024 7:22 PM
[2024-09-03 19:45] LABS: Appearance,Urine Cloudy (Clear); Bacteria,Urine Rare /hpf; Bilirubin,Urine Negative (Negative); Blood,Urine Trace (Negative); Color,Urine Colorless; Glucose,Urine (UA) Negative (Negative); Ketones,Urine Negative (Negative); Leukocyte Esterase,Urine Small (Negative); Mucus,Urine Rare /hpf; Nitrite,Urine Negative (Negative); PH, Urine 6.5 (5.0-8.0); Protein,Urine Negative (Negative); RBC,Urine 1 /hpf (0-5); Specific Gravity,Urine 1.005 (1.001-1.035); Squamous Epithelial Cell,Urine 10 /hpf (0-4); Urobilinogen,Urine <2.0 mg/dL (<2.0); WBC,Urine 6 /hpf (0-5)
[2024-09-03 19:48] LABS: ALT 8 U/L (4-34); AST 14 U/L (14-36); African American GFR (CKD) >90 (>60 ml/min/1.73 sqM); Albumin 3.7 g/dL (3.5-5.0); Alkaline Phosphatase 99 U/L (38-126); Anion Gap 10 mmol/L; Blood Urea Nitrogen 7 mg/dL (7-17); Calcium 9.2 mg/dL (8.4-10.2); Carbon Dioxide 19 mmol/L (22-30); Chloride 106 mmol/L (98-107); Glucose 88 mg/dL (74-99); Non-African American GFR(CKD) >90 (>60 ml/min/1.73 sqM); Potassium 3.9 mmol/L (3.5-5.1); Sodium 135 mmol/L (137-145); Total Bilirubin 0.2 mg/dL (0.2-1.3); Total Protein 6.5 g/dL (6.3-8.2)
[2024-09-03 19:57] LABS: NT-Pro-B-Type Natriuretic Pept 66 pg/mL
[2024-09-03 19:57] LABS: INR 0.8 (<1.2); Prothrombin Time 9.3 sec (10.0-12.5)
[2024-09-03 20:24] LABS: Partial Thromboplastin Time 19.3 sec (22.0-30.0)
--- NOTE | 2024-09-03 22:27 | CT ---
EXAMINATION TYPE: CT chest angio for PE DATE OF EXAM: 09/03/2024 COMPARISON: NONE HISTORY: Dyspnea, possible pulmonary embolism. Elevated d-dimer and currently [address] DLP: 380 mGycm. Automated Exposure Control for Dose Reduction was Utilized. CONTRAST: CTA scan of the thorax is performed with IV Contrast, patient injected with 100 mL of Isovue 370, pul monary embolism protocol. MIP Images are created on CT scanner and reviewed. FINDINGS: LUNGS: The lungs are grossly clear, there is no concerning parenchymal mass or focal consolidation id entified. There is no pleural effusion or pneumothorax seen. The tracheobronchial tree is patent. MEDIASTINUM: There is markedly suboptimal study with most dense contrast in SVC is some contrast in t he aorta but minimal contrast in the pulmonary arteries. Essentially nondiagnostic study . Some enhan cement of the aorta without aneurysm or dissection. There are no greater than 1 cm hilar or mediastin al lymph nodes. No cardiomegaly or pericardial effusion is seen. OTHER: No additional significant abnormality is seen. IMPRESSION: Suboptimal, nondiagnostic evaluation for acute pulmonary embolism. No suspicious acute pu lmonary parenchymal process. [facility], , 09/03/2024 10:24 PM
[2024-09-03 22:41] VITALS: BP 110/56; PULSE 88; RESP 16; TEMP 97.9
== END 2024-09-03 22:41 | disposition home or self-care (01) ==
LOC: EC 17:11
DX: O99.512 Diseases of the respiratory system complicating pregnancy, second trimester (principal); R06.02 Shortness of breath; Z88.5 Allergy status to narcotic agent; Z3A.23 23 weeks gestation of pregnancy
CPT/HCPCS: 36415; 93005; 85379; 83880; 80053; 83605; 84484; 85025; 85610; 85730; 81001; 93970; 71275; 99285; Q9967

== ENCOUNTER 2024-12-02 11:42 | Emergency (ER) | payer OTHER ==
[2024-12-02 11:49] VITALS: TEMP 98.2
--- NOTE | 2024-12-02 12:16 | ED ---
SOB HPI - General Chief Complaint: Shortness of Breath Stated Complaint: 36 wks preg, tightness in throat Time Seen by Provider: 12/02/24 11:50 Source: patient, RN notes reviewed Mode of arrival: ambulatory Limitations: no limitations - History of Present Illness Initial Comments: This is a 29-year-old female who presents to the emergency department for shortness of breath and throat tightness. Patient is 36 weeks . States that she was dealing with a cold around 3 weeks ago. Shortly after that she started developing intermittent shortness of breath and tightness in her throat. Her throat is not painful, however she states that especially when she is laying in bed at night she starts to feel like her throat is closing and she cannot breathe. She has followed up with her PCP and [facility]. They have tried treating her for allergies and acid reflux and she is taking antihistamines, Flonase, and famotidine without any relief in symptoms. She does have a history of anxiety, but states that it feels different. Denies any chest pain. Denies any abdominal pain or vaginal bleeding. Reports feeling regular movement. MD Complaint: shortness of breath - Related Data Home Medications Medication Instructions Recorded Confirmed Acyclovir 400 mg PO BID 04/09/18 05/16/20 Pnv No.95/Ferrous Fum/Folic AC 1 each PO DAILY 04/09/18 05/16/20 [ Multivitamin Tablet] Previous Rx's Medication Instructions Recorded Ibuprofen [Motrin] 600 mg PO Q6HR PRN #40 tab 05/17/20 Allergies Allergy/AdvReac Type Severity Reaction Status Date / Time codeine Allergy Nausea & Verified 12/02/24 11:50 Vomiting Review of Systems ROS Statement: Those systems with pertinent positive or pertinent negative responses have been documented in the HPI. ROS Other: All systems not noted in ROS Statement are negative. Past Medical History Past Medical History: No Reported History History of Any Multi-Drug Resistant Organisms: None Reported Past Surgical History: Section Additional Past Surgical History / Comment(s): [place] tooth extraction Past Anesthesia/Blood Transfusion Reactions: No Reported Reaction Past Psychological History: Anxiety Smoking Status: Never smoker Past Alcohol Use History: None Reported Past Drug Use History: None Reported - Past Family History Father Family Medical History: No Reported History General Exam Limitations: no limitations General appearance: alert, in no apparent distress Head exam: Present: atraumatic, normocephalic, normal inspection ENT exam: Present: mucous membranes moist, TM's normal bilaterally Neck exam: Present: normal inspection, full ROM. Absent: tenderness, meningismus, lymphadenopathy Respiratory exam: Present: normal lung sounds bilaterally. Absent: respiratory distress, wheezes, rales, rhonchi, stridor Cardiovascular Exam: Present: regular rate, normal rhythm Neurological exam: Present: alert, oriented X3, CN II-XII intact Psychiatric exam: Present: normal affect, normal mood Skin exam: Present: warm, dry, intact, normal color. Absent: rash Course Vital Signs 12/02/24 12/02/24 11:44 15:27 Temperature 98.2 F Pulse Rate 120 H 117 H Respiratory 20 16 Rate Blood Pressure 136/79 121/79 O2 Sat by Pulse 97 97 Oximetry Medical Decision Making - Medical Decision Making This is a 29-year-old female who presents to the emergency department for shortness of breath and throat tightness. Was pt. sent in by a medical professional or institution? @ -No Did you speak to anyone other than the patient for history? @ -No Did you review nursing and triage notes? @ -Yes, and I agree, it is accurate with regards to the patient's symptoms. Were old charts reviewed? @ -No Differential Diagnosis? @ -Differential Dyspnea: Coronary syndrome, arrhythmia, tamponade, asthma, COPD, pulmonary embolism, pneumonia, pneumothorax, pulmonary effusion, anaphylaxis, diabetic ketoacidosis, flailed chest, pulmonary contusion, diaphragmatic rupture, anemia, neur omuscular, this is not meant to be an all-inclusive list. EKG interpreted by me (3pts min.)? @ -EKG interpreted by me demonstrating the following: Sinus tachycardia. Ventricular rate 113 bpm, NC interval 130 ms, QRS duration 83 ms, QTc 383 ms. X-rays interpreted by me (1pt min.)? @ -Chest x-ray obtained, my interpretation identifies no localized consolidations or infiltrates. CT interpreted by me (1pt min.)? @ -CTA of the chest obtained. My interpretation identifies no pulmonary embolus. U/S interpreted by me (1pt. min.)? @ -Not obtained What testing was considered but not performed? (CT, X-rays, U/S, labs)? Why? @ -None What meds were considered but not given? Why? @ -None Did you discuss the management of the patient with other professionals? @ -No Did you reconcile home meds? @ -No Was smoking cessation discussed for >3mins.? @ -No Was critical care preformed (if so, how long)? @ -No Were there social determinants of health that impacted care today? How? (Homelessness, low income, unemployed, alcoholism, drug addiction, transportation, low edu. Level, literacy, decrease access to med. care, [place] [facility], rehab)? @ -No Was there de-escalation of care discussed even if they declined? (Discuss DNR or withdrawal of care, Hospice)? @ -No What co-morbidities impacted this encounter? (DM, HTN, Smoking, COPD, CAD, Cancer, CVA, Hep., AIDS, mental health diagnosis, sleep apnea, morbid obesity)? @ - Was patient admitted / discharged? @ -Discharged. Lab work demonstrates an elevated D-dimer of 1.88 and is otherwise unremarkable. COVID, influenza, RSV, and rapid strep test negative. Urinalysis negative for signs of infection. We started with an x-ray of the chest and soft tissue neck revealing no acute process. Risk of radiation exposure was discussed prior and patient was in agreement. Based on the pregn dayan adapted YEARS algorithm and Loulou's proposed algorithm, because she is in her third trimester and has a D-dimer of greater than 1.25, a CTA was advised to exclude a pulmonary embolus. Risk of radiation exposure with this was again discussed, and patient was in agreement. CTA of the chest obtained revealing no evidence of a pulmonary embolus or other acute process. She is already being treated for allergies and GERD as advised by her [facility]. She will continue to do so. Patient's symptoms likely related to the . Advised she follow- up with her PCP and [facility] for reevaluation. Patient discharged home in stable condition. Case discussed with ED attending Dr. Cooley. Return precautions reviewed in depth, the patient is instructed to return to the emergency department with any new, worsening, or concerning symptoms. Patient verbalized understanding. Undiagnosed new problem with uncertain prognosis? @ -None Drug Therapy requiring intensive monitoring for toxicity (Heparin, Nitro, Insulin, Cardizem)? @ -None Were any procedures done? @ -None Diagnosis/symptom? @ -Shortness of breath , throat tightness sensation Acute, or Chronic, or Acute on Chronic? @ -Acute Uncomplicated (without systemic symptoms) or Complicated (systemic symptoms)? @ -Uncomplicated Side effects of treatment? @ -None Exacerbation, Progression, or Severe Exacerbation] @ -Not applicable Poses a threat to life or bodily function? @ -Unlikely - Lab Data Result diagrams: 12/02/24 12:44 12/02/24 12:44 Lab Results 12/02/24 12/02/24 12/02/24 Range/Units 12:44 12:44 12:44 WBC 9.24 (4.50-10.00) 10*3/uL RBC 4.04 L (4.10-5.20) 10*6/uL Hgb 10.3 L (12.0-15.0) g/dL Hct 31.4 L (37.2-46.3) % MCV 77.7 L (80.0-97.0) fL MCH 25.5 L (27.0-32.0) pg MCHC 32.8 (32.0-37.0) g/dL Plt Count 290 (140-440) 10*3/uL MPV 9.8 (9.5-12.2) fL Immature Gran % (Auto) 0.3 % Neutrophils % 72.7 % Lymphocytes % 19.4 % Monocytes % 7.0 % Eosinophils % 0.4 % Basophils % 0.2 % Immature Gran # 0.03 (0.00-0.04) 10*3/uL Neutrophils # 6.71 (1.80-7.70) 10*3/uL Lymphocytes # 1.79 (0.90-5.00) 10*3/uL Monocytes # 0.65 (0.20-1.00) 10*3/uL Eosinophils # 0.04 (0.04-0.35) 10*3/uL Basophils # 0.02 (0.00-0.10) 10*3/uL PT 9.4 L (10.0-12.5) sec INR 0.8 (<1.2) APTT 20.7 L (22.0-30.0) sec D-Dimer 1.88 H (<0.60) mg/L FEU Sodium 134 L (137-145) mmol/L Potassium 4.1 (3.5-5.1) mmol/L Chloride 105 (98-107) mmol/L Carbon Dioxide 19 L (22-30) mmol/L Anion Gap 10 mmol/L BUN 5 L (7-17) mg/dL Creatinine 0.42 L (0.52-1.04) mg/dL Est GFR (CKD-EPI)AfAm >90 (>60 ml/min/1.73 sqM) Est GFR (CKD-EPI)NonAf >90 (>60 ml/min/1.73 sqM) Glucose 107 H (74-99) mg/dL Plasma Lactic Acid Rciardo (0.7-2.0) mmol/L Calcium 9.4 (8.4-10.2) mg/dL Magnesium 1.8 (1.6-2.3) mg/dL Total Bilirubin 0.5 (0.2-1.3) mg/dL AST 21 (14-36) U/L ALT 10 (4-34) U/L Alkaline Phosphatase 143 H (38-126) U/L Troponin I (0.000-0.034) ng/mL NT-Pro-B Natriuret Pep 42 pg/mL Total Protein 6.6 (6.3-8.2) g/dL Albumin 3.5 (3.5-5.0) g/dL TSH 1.600 (0.465-4.680) mIU/L Urine Color Urine Appearance (Clear) Urine pH (5.0-8.0) Ur Specific [place] (1.001-1.035) Urine Protein (Negative) Urine Glucose (UA) (Negative) Urine Ketones (Negative) Urine Blood (Negative) Urine Nitrite (Negative) Urine Bilirubin (Negative) Urine Urobilinogen (<2.0) mg/dL Ur Leukocyte Esterase (Negative) Urine RBC (0-5) /hpf Urine WBC (0-5) /hpf Ur Squamous Epith Cells (0-4) /hpf Urine Bacteria (None) /hpf Influenza Type A (PCR) (Not Detectd) Influenza Type B (PCR) (Not Detectd) RSV (PCR) (Not Detectd) SARS-CoV-2 (PCR) (Not Detectd) Group A Strep (PCR) (Not Detectd) 12/02/24 12/02/24 12/02/24 Range/Units 12:44 12:44 12:44 WBC (4.50-10.00) 10*3/uL RBC (4.10-5.20) 10*6/uL Hgb (12.0-15.0) g/dL Hct (37.2-46.3) % MCV (80.0-97.0) fL MCH (27.0-32.0) pg MCHC (32.0-37.0) g/dL Plt Count (140-440) 10*3/uL MPV (9.5-12.2) fL Immature Gran % (Auto) % Neutrophils % % Lymphocytes % % Monocytes % % Eosinophils % % Basophils % % Immature Gran # (0.00-0.04) 10*3/uL Neutrophils # (1.80-7.70) 10*3/uL Lymphocytes # (0.90-5.00) 10*3/uL Monocytes # (0.20-1.00) 10*3/uL Eosinophils # (0.04-0.35) 10*3/uL Basophils # (0.00-0.10) 10*3/uL PT (10.0-12.5) sec INR (<1.2) APTT (22.0-30.0) sec D-Dimer (<0.60) mg/L FEU Sodium (137-145) mmol/L Potassium (3.5-5.1) mmol/L Chloride (98-107) mmol/L Carbon Dioxide (22-30) mmol/L Anion Gap mmol/L BUN (7-17) mg/dL Creatinine (0.52-1.04) mg/dL Est GFR (CKD-EPI)AfAm (>60 ml/min/1.73 sqM) Est GFR (CKD-EPI)NonAf (>60 ml/min/1.73 sqM) Glucose (74-99) mg/dL Plasma Lactic Acid Ricardo 1.4 (0.7-2.0) mmol/L Calcium (8.4-10.2) mg/dL Magnesium (1.6-2.3) mg/dL Total Bilirubin (0.2-1.3) mg/dL AST (14-36) U/L ALT (4-34) U/L Alkaline Phosphatase (38-126) U/L Troponin I <0.012 (0.000-0.034) ng/mL NT-Pro-B Natriuret Pep pg/mL Total Protein (6.3-8.2) g/dL Albumin (3.5-5.0) g/dL TSH (0.465-4.680) mIU/L Urine Color Urine Appearance (Clear) Urine pH (5.0-8.0) Ur Specific [place] (1.001-1.035) Urine Protein (Negative) Urine Glucose (UA) (Negative) Urine Ketones (Negative) Urine Blood (Negative) Urine Nitrite (Negative) Urine Bilirubin (Negative) Urine Urobilinogen (<2.0) mg/dL Ur Leukocyte Esterase (Negative) Urine RBC (0-5) /hpf Urine WBC (0-5) /hpf Ur Squamous Epith Cells (0-4) /hpf Urine Bacteria (None) /hpf Influenza Type A (PCR) (Not Detectd) Influenza Type B (PCR) (Not Detectd) RSV (PCR) (Not Detectd) SARS-CoV-2 (PCR) (Not Detectd) Group A Strep (PCR) NOT DETECTED (Not Detectd) 12/02/24 12/02/24 Range/Units 12:44 12:55 WBC (4.50-10.00) 10*3/uL RBC (4.10-5.20) 10*6/uL Hgb (12.0-15.0) g/dL Hct (37.2-46.3) % MCV (80.0-97.0) fL MCH (27.0-32.0) pg MCHC (32.0-37.0) g/dL Plt Count (140-440) 10*3/uL MPV (9.5-12.2) fL Immature Gran % (Auto) % Neutrophils % % Lymphocytes % % Monocytes % % Eosinophils % % Basophils % % Immature Gran # (0.00-0.04) 10*3/uL Neutrophils # (1.80-7.70) 10*3/uL Lymphocytes # (0.90-5.00) 10*3/uL Monocytes # (0.20-1.00) 10*3/uL Eosinophils # (0.04-0.35) 10*3/uL Basophils # (0.00-0.10) 10*3/uL PT (10.0-12.5) sec INR (<1.2) APTT (22.0-30.0) sec D-Dimer (<0.60) mg/L FEU Sodium (137-145) mmol/L Potassium (3.5-5.1) mmol/L Chloride (98-107) mmol/L Carbon Dioxide (22-30) mmol/L Anion Gap mmol/L BUN (7-17) mg/dL Creatinine (0.52-1.04) mg/dL Est GFR (CKD-EPI)AfAm (>60 ml/min/1.73 sqM) Est GFR (CKD-EPI)NonAf (>60 ml/min/1.73 sqM) Glucose (74-99) mg/dL Plasma Lactic Acid Ricardo (0.7-2.0) mmol/L Calcium (8.4-10.2) mg/dL Magnesium (1.6-2.3) mg/dL Total Bilirubin (0.2-1.3) mg/dL AST (14-36) U/L ALT (4-34) U/L Alkaline Phosphatase (38-126) U/L Troponin I (0.000-0.034) ng/mL NT-Pro-B Natriuret Pep pg/mL Total Protein (6.3-8.2) g/dL Albumin (3.5-5.0) g/dL TSH (0.465-4.680) mIU/L Urine Color Colorless Urine Appearance Cloudy H (Clear) Urine pH 6.5 (5.0-8.0) Ur Specific [place] 1.004 (1.001-1.035) Urine Protein Negative (Negative) Urine Glucose (UA) Negative (Negative) Urine Ketones Negative (Negative) Urine Blood Negative (Negative) Urine Nitrite Negative (Negative) Urine Bilirubin Negative (Negative) Urine Urobilinogen <2.0 (<2.0) mg/dL Ur Leukocyte Esterase Negative (Negative) Urine RBC 1 (0-5) /hpf Urine WBC 1 (0-5) /hpf Ur Squamous Epith Cells 6 H (0-4) /hpf Urine Bacteria Rare H (None) /hpf Influenza Type A (PCR) Not Detected (Not Detectd) Influenza Type B (PCR) Not Detected (Not Detectd) RSV (PCR) Not Detected (Not Detectd) SARS-CoV-2 (PCR) Not Detected (Not Detectd) Group A Strep (PCR) (Not Detectd) - Radiology Data Radiology results: report reviewed, image reviewed Disposition Clinical Impression: Sensation of swollen throat, Shortness of breath with Disposition: HOME SELF-CARE Instructions (If sedation given, give patient instructions): Shortness of Breath (ED) Additional Instructions: Return to the emergency department with any new, worsening, or concerning symptoms. Follow up with your primary care provider and [facility]. Is patient prescribed a controlled substance at d/c from ED?: No Referrals: Diana Cooper DO [Primary Care Provider] - 1-2 days Time of Disposition: 15:08
[2024-12-02] MEDS: SODIUM CHLORIDE 0.9% 1,000 ML IV ONE (12:58)
--- NOTE | 2024-12-02 13:01 | XR ---
EXAMINATION TYPE: XR soft tissue neck DATE OF EXAM: 12/02/2024 12:25 PM COMPARISON: None. CLINICAL INDICATION: Female, 29 years old with history of Throat tightness, pain TECHNIQUE: 2 view(s) obtained. FINDINGS: Epiglottis appears normal. Prevertebral space is normal. No subglottic airway edema is evident. No ra diopaque foreign bodies are evident. IMPRESSION: 1. Unremarkable 2 view soft tissue neck [facility], , 12/02/2024 12:58 PM
[2024-12-02 13:08] LABS: Basophils # (A) 0.02 10*3/uL (0.00-0.10); Basophils % (A) 0.2 %; Eosinophils # (A) 0.04 10*3/uL (0.04-0.35); Eosinophils % (A) 0.4 %; HCT 31.4 % (37.2-46.3); HGB 10.3 g/dL (12.0-15.0); Lymphocytes # (A) 1.79 10*3/uL (0.90-5.00); Lymphocytes % (A) 19.4 %; MCH 25.5 pg (27.0-32.0); MCHC 32.8 g/dL (32.0-37.0); MCV 77.7 fL (80.0-97.0); Mean Platelet Volume 9.8 fL (9.5-12.2); Monocytes # (A) 0.65 10*3/uL (0.20-1.00); Neutrophils # (A) 6.71 10*3/uL (1.80-7.70); Neutrophils % (A) 72.7 %; Platelet Count 290 10*3/uL (140-440); RBC 4.04 10*6/uL (4.10-5.20); RDW 14.7 % (11.5-14.5); WBC 9.24 10*3/uL (4.50-10.00)
--- NOTE | 2024-12-02 13:14 | XR ---
EXAMINATION TYPE: XR chest 2V DATE OF EXAM: 12/02/2024 12:25 PM COMPARISON: None. CLINICAL INDICATION: Female, 29 years old with history of difficulty breathing, TECHNIQUE: XR chest 2V view(s) obtained. FINDINGS: The heart size is normal. The pulmonary vasculature is normal. The lungs are clear. Tracheobronchial tree as visualized appears normal. IMPRESSION: 1. No acute pulmonary process. [facility], , 12/02/2024 1:11 PM
[2024-12-02 13:16] LABS: ALT 10 U/L (4-34); AST 21 U/L (14-36); African American GFR (CKD) >90 (>60 ml/min/1.73 sqM); Albumin 3.5 g/dL (3.5-5.0); Alkaline Phosphatase 143 U/L (38-126); Anion Gap 10 mmol/L; Blood Urea Nitrogen 5 mg/dL (7-17); Calcium 9.4 mg/dL (8.4-10.2); Carbon Dioxide 19 mmol/L (22-30); Chloride 105 mmol/L (98-107); Glucose 107 mg/dL (74-99); Magnesium 1.8 mg/dL (1.6-2.3); Non-African American GFR(CKD) >90 (>60 ml/min/1.73 sqM); Potassium 4.1 mmol/L (3.5-5.1); Sodium 134 mmol/L (137-145); Total Bilirubin 0.5 mg/dL (0.2-1.3); Total Protein 6.6 g/dL (6.3-8.2)
[2024-12-02 13:24] LABS: NT-Pro-B-Type Natriuretic Pept 42 pg/mL
[2024-12-02 13:28] LABS: Appearance,Urine Cloudy (Clear); Bacteria,Urine Rare /hpf; Bilirubin,Urine Negative (Negative); Blood,Urine Negative (Negative); Color,Urine Colorless; Glucose,Urine (UA) Negative (Negative); Ketones,Urine Negative (Negative); Leukocyte Esterase,Urine Negative (Negative); Nitrite,Urine Negative (Negative); PH, Urine 6.5 (5.0-8.0); Protein,Urine Negative (Negative); RBC,Urine 1 /hpf (0-5); Specific Gravity,Urine 1.004 (1.001-1.035); Squamous Epithelial Cell,Urine 6 /hpf (0-4); Urobilinogen,Urine <2.0 mg/dL (<2.0); WBC,Urine 1 /hpf (0-5)
[2024-12-02 13:29] LABS: Influenza A Not Detected (Not Detectd); Influenza B Not Detected (Not Detectd); RSV Not Detected (Not Detectd)
[2024-12-02 13:31] LABS: INR 0.8 (<1.2); Partial Thromboplastin Time 20.7 sec (22.0-30.0); Prothrombin Time 9.4 sec (10.0-12.5)
--- NOTE | 2024-12-02 14:50 | CT ---
EXAMINATION TYPE: CT chest angio for PE DATE OF EXAM: 12/02/2024 COMPARISON: 09/03/2024 CLINICAL INDICATION: Female, 29 years old with history of MIGUEL, elevated d-dimer, tachycardia; PHH, DI B, elevated d-dimer, tachycardia, SOB or PAIN TECHNIQUE: Ct angiogram of the chest performed with with IV Contrast, patient injected with 60ml mL of Isovue 37 0. MIP images are created and reviewed. CT DLP: [address] CTDI: mGy Automated exposure control for dose reduction was used. FINDINGS: LUNGS: The lungs are grossly clear, there is no concerning parenchymal mass or nodule identified. T here is no pleural effusion or pneumothorax seen. The tracheobronchial tree is patent. MEDIASTINUM: There is satisfactory enhancement of the pulmonary artery and its branches, there is no CT evidence for pulmonary embolism. There are no greater than 1 cm hilar or mediastinal lymph nodes. No pericardial effusion is seen. IMPRESSION: 1. No evidence of pulmonary embolism. 2. No acute cardiopulmonary disease. Follow-up recommendations for incidental pulmonary nodules are per [employer] or [employer]. [facility], , 12/02/2024 2:48 PM
[2024-12-02 15:28] VITALS: BP 121/79; PULSE 117; RESP 16
== END 2024-12-02 15:40 | disposition home or self-care (01) ==
LOC: EC 11:42
DX: O99.613 Diseases of the digestive system complicating pregnancy, third trimester (principal); R06.02 Shortness of breath; J02.9 Acute pharyngitis, unspecified; Z88.5 Allergy status to narcotic agent; Z3A.36 36 weeks gestation of pregnancy
CPT/HCPCS: 36415; 93005; 87651; 83880; 80053; 84443; 83605; 85379; 83735; 84484; 85025; 85610; 85730; 81001; 87636; 70360; 71046; 71275; 99284; 96360; Q9967

== ENCOUNTER 2024-12-23 17:30 | Inpatient (IN) | payer OTHER ==
[2024-12-23] MEDS ORDERED: METHYLERGONOVINE 0.2 MG/ML 1 ML AMP IM PRN (17:53)
[2024-12-23] MEDS ORDERED: TERBUTALINE 1 MG/ML VIAL SQ PRN (17:53)
[2024-12-23] MEDS ORDERED: miSOPROStoL 200 MCG TAB RECTAL PRN (17:53)
[2024-12-23] MEDS ORDERED: miSOPROStoL 200 MCG TAB PO PRN (17:53)
[2024-12-23] MEDS ORDERED: CARBOPROST TROMETHAMINE 250 MCG/ML 1 ML AMP IM PRN (17:53)
[2024-12-23] MEDS ORDERED: TRANEXAMIC 1,000 MG/100ML-NACL 1,000 MG in EMPTY BAG 1 BAG IV PRN (17:53)
[2024-12-23] MEDS ORDERED: LIDOCAINE 0.5% (PF) 5 MG/ML (50 ML SDV) SQ PRN (17:53)
[2024-12-23] MEDS ORDERED: OXYTOCIN 10 UNIT/ML 1 ML VIAL IM PRN (17:53)
[2024-12-23] MEDS ORDERED: BUTORPHANOL 1 MG/ML 1 ML VIAL IV PRN (17:54)
[2024-12-23 18:06] LABS: Basophils # (A) 0.04 10*3/uL (0.00-0.10); Basophils % (A) 0.3 %; Eosinophils # (A) 0.04 10*3/uL (0.04-0.35); Eosinophils % (A) 0.3 %; HCT 31.9 % (37.2-46.3); HGB 10.7 g/dL (12.0-15.0); Lymphocytes % (A) 16.1 %; MCH 24.8 pg (27.0-32.0); MCHC 33.5 g/dL (32.0-37.0); MCV 73.8 fL (80.0-97.0); Mean Platelet Volume 9.9 fL (9.5-12.2); Monocytes % (A) 6.6 %; Neutrophils # (A) 10.39 10*3/uL (1.80-7.70); Neutrophils % (A) 76.3 %; Platelet Count 300 10*3/uL (140-440); RBC 4.32 10*6/uL (4.10-5.20); RDW 15.3 % (11.5-14.5); WBC 13.63 10*3/uL (4.50-10.00)
[2024-12-23] MEDS: LACTATED RINGERS 1,000 ML IV SCH (18:12)
[2024-12-23] MEDS ORDERED: SODIUM CHLORIDE 0.9% 250 ML BAG ONE (18:15)
[2024-12-23] MEDS ORDERED: ROPIVACAINE 5 MG/ML 30 ML VIAL ONE (18:15)
[2024-12-23] MEDS ORDERED: fentaNYL (PF) 50 MCG/ML 5 ML AMP ONE (18:15)
[2024-12-23] MEDS: OXYTOCIN 30 UNITS/500 ML NS 30 UNIT in SALINE 1 500ML.BAG IV SCH (19:11)
[2024-12-23] MEDS ORDERED: diphenhydrAMINE 50 MG/ML 1 ML VIAL IVP PRN ×2 (19:24)
[2024-12-23] MEDS ORDERED: SIMETHICONE 80 MG CHEWABLE PO PRN (19:24)
[2024-12-23] MEDS ORDERED: LANOLIN CREAM 1 GM TUBE TOPICAL PRN (19:24)
[2024-12-23] MEDS ORDERED: HYDROCORTISONE 2.5% RECTAL CREAM 30 GM TUBE RECTAL PRN (19:24)
[2024-12-23] MEDS ORDERED: diphenhydrAMINE 50 MG CAP PO PRN (19:24)
[2024-12-23] MEDS ORDERED: ZOLPIDEM 5 MG TAB PO PRN (19:24)
[2024-12-23] MEDS ORDERED: BENZOCAINE/MENTHOL SPRAY 1 GM/SPRAY AEROSOL TOPICAL PRN (19:24)
[2024-12-23] MEDS ORDERED: diphenhydrAMINE 25 MG CAP PO PRN (19:24)
[2024-12-23] MEDS ORDERED: OXYTOCIN 30 UNITS/500 ML NS 30 UNIT in SALINE 1 500ML.BAG IV SCH (19:30)
--- NOTE | 2024-12-23 19:31 | P.HPOB ---
History of Present Illness H&P Date: 12/23/24 Chief Complaint: 38-4/7 weeks, spontaneous rupture of membranes, labor Patient is a 29-year-old 4 para 3-0-0-3 admitted at 38-4/7 weeks as established by last menstrual period and confirmed by second trimester ultrasound. She is admitted with documented spontaneous rupture of membranes with meconium stained fluid and active labor with all signs reassuring, category 1 heart rate tracing. Her has been uncomplicated though she has a history of a delivery for her first followed by 2 successful vaginal births and has requested vaginal trial of labor for this . She additionally has a history of 1/4 degree perineal laceration with her first vaginal delivery. Group B strep status is negative. Obstetrical history: 4 para 3-0-0-3 with 1 term delivery followed by 2 successful vaginal births after section. Current statistics are listed in history of present illness. EDC of 01/03/2025 was established by last menstrual period and confirmed by second trimester ultrasound. Laboratory workup demonstrates a blood type of B+ with a negative antibody screen. Rubella status is immune. The remainder of the laboratory workup was within normal limits. Early Glucola as well as second trimester Glucola were within normal limits. Group B strep status is negative. Gynecologic history: Unremarkable with no history of any infections to include STDs. Review of Systems Review of systems is could not find history of present illness. Past Medical History Past Medical History: No Reported History History of Any Multi-Drug Resistant Organisms: None Reported Past Surgical History: Section Additional Past Surgical History / Comment(s): [place] tooth extraction Past Anesthesia/Blood Transfusion Reactions: No Reported Reaction Past Psychological History: Anxiety Smoking Status: Never smoker Past Alcohol Use History: None Reported Past Drug Use History: None Reported - Past Family History Father Family Medical History: No Reported History Medications and Allergies Home Medications Medication Instructions Recorded Confirmed Type Pnv No.95/Ferrous Fum/Folic AC 1 each PO DAILY 04/09/18 12/23/24 History [ Multivitamin Tablet] Escitalopram [Lexapro] 10 mg PO DAILY 12/23/24 12/23/24 History valACYclovir HCL [Valacyclovir] 1,000 mg PO DAILY 12/23/24 12/23/24 History Allergies Allergy/AdvReac Type Severity Reaction Status Date / Time codeine Allergy Nausea & Verified 12/23/24 17:47 Vomiting Exam Vital Signs Temp Pulse Resp BP Pulse Ox 12/23/24 18:44 97.3 F L 107 H 18 137/82 99 12/23/24 17:54 97.3 F L 107 H 18 137/82 99 Intake and Output 12/23/24 12/23/24 12/23/24 06:59 14:59 22:59 Output Total 100 Balance -100 Output: Output, Quantitative 100 Blood Loss Other: Weight 98.883 kg General, this is a well-developed, well-nourished white female in no acute distress. Her heart has a regular rhythm and rate without murmur. Her lungs are clear to auscultation bilateral in all roberto. Her abdomen is gravid, nondistended, has normal active bowel sounds, soft, nontender, and without any palpable masses aside from the uterine fundus. Her extremities are without any cyanosis, clubbing, or edema and are nontender to palpation bilaterally. Digital cervical examination at the time of my arrival demonstrates her cervix to be completely dilated with the vertex and presentation at -2 station. Spont aneous rupture of membranes with light meconium stained fluid has been documented. Results Result Diagrams: 12/23/24 17:58 Abnormal Lab Results - Last 24 Hours (Table) 12/23/24 Range/Units 17:58 WBC 13.63 H (4.50-10.00) 10*3/uL Hgb 10.7 L (12.0-15.0) g/dL Hct 31.9 L (37.2-46.3) % MCV 73.8 L (80.0-97.0) fL MCH 24.8 L (27.0-32.0) pg Immature Gran # 0.06 H (0.00-0.04) 10*3/uL Neutrophils # 10.39 H (1.80-7.70) 10*3/uL Assessment and Plan (1) Meconium in amniotic fluid affecting management of mother Current Visit: Yes Status: Acute Code(s): O36.8990 - MATERNAL CARE FOR OTH PROBLEMS, UNSP TRIMESTER, UNSP SNOMED Code(s): 94888858 (2) Term Current Visit: Yes Status: Acute Code(s): Z34.90 - ENCNTR FOR SUPRVSN OF NORMAL , UNSP, UNSP TRIMESTER SNOMED Code(s): 50479769 (3) Status post primary low transverse section Current Visit: No Status: Acute Code(s): Z98.891 - HISTORY OF UTERINE SCAR FROM PREVIOUS SURGERY SNOMED Code(s): 913172093 Plan: Patient has been admitted for active management of labor. An epidural catheter has been placed for analgesia. I would anticipate normal spontaneous vaginal delivery shortly. She will otherwise continue to have close maternal and surveillance and expectant management be practiced. Thorough suction will be carried out on the perineum after delivery of the infant for meconium stained fluid.
--- NOTE | 2024-12-23 19:34 | P.PROBDLV ---
Vaginal Delivery Note - . Vaginal Delivery Note: The patient is a 29-year-old 4 para 3-0-0-3 presenting at 38-4/7 weeks by good dating parameters. She is admitted in active labor with spontaneous rupture of membranes for lightly meconium stained fluid. On admission, all signs are reassuring with a category 1 heart rate tracing. She has a history of a previous section with 2 successful vaginal births following that. She additionally has a history of fourth degree perineal laceration with first vaginal delivery. Group B strep status is negative. She had an epidural catheter placed shortly after admission and progressed very quickly to complete. She then pushed to a normal spontaneous vaginal delivery of a viable 6 pound 5.6 ounce baby girl with Apgars of 7 at 1 minute and 9 at 5 minutes delivered in the right occiput anterior position. Thorough suctioning of the nose and mouth was carried out on the perineum. There was a nuchal cord x 1 reduced after delivery of the infant. The placenta was ultimately delivered manually and intact the meconium stained with a grossly normal though lacerated and most certainly marginally and velamentously inserted three-vessel cord. There was a small skin split in the midline perineum over a previous repair which was repaired with a single [id number] stitch of 3-0 chromic catgut without difficulty. Estimated blood loss for the case was 100 mL or less. There were no complications. All sponge, instrument, and needle counts were correct. Both mother and are resting comfortably in recovery.
[2024-12-23] MEDS: SENNOSIDES-DOCUSATE SODIUM 1 EACH TAB PO SCH (20:08)
[2024-12-24] MEDS: IBUPROFEN 800 MG TAB PO PRN (04:26)
[2024-12-24 06:48] LABS: Basophils # (A) 0.03 10*3/uL (0.00-0.10); Basophils % (A) 0.2 %; Eosinophils # (A) 0.06 10*3/uL (0.04-0.35); Eosinophils % (A) 0.5 %; HCT 29.5 % (37.2-46.3); HGB 9.4 g/dL (12.0-15.0); Lymphocytes # (A) 3.17 10*3/uL (0.90-5.00); Lymphocytes % (A) 24.1 %; MCH 24.5 pg (27.0-32.0); MCHC 31.9 g/dL (32.0-37.0); MCV 76.8 fL (80.0-97.0); Mean Platelet Volume 9.5 fL (9.5-12.2); Monocytes # (A) 1.06 10*3/uL (0.20-1.00); Monocytes % (A) 8.1 %; Neutrophils # (A) 8.75 10*3/uL (1.80-7.70); Neutrophils % (A) 66.6 %; Platelet Count 241 10*3/uL (140-440); RBC 3.84 10*6/uL (4.10-5.20); RDW 15.6 % (11.5-14.5); WBC 13.13 10*3/uL (4.50-10.00)
--- NOTE | 2024-12-24 09:17 | P.DS ---
Providers Date of admission: 12/23/24 17:50 Expected date of discharge: 12/24/24 Attending physician: Diana Cooper Primary care physician: Stated None - Discharge Diagnosis(es) (1) Meconium in amniotic fluid affecting management of mother Current Visit: Yes Status: Acute (2) Normal spontaneous vaginal delivery Current Visit: Yes Status: Acute (3) Perineal laceration during delivery Current Visit: Yes Status: Acute (4) Previous delivery affecting Current Visit: Yes Status: Acute (5) SROM (spontaneous rupture of membranes) Current Visit: Yes Status: Acute (6) Term Current Visit: Yes Status: Acute Hospital Course: This is a 29-year-old 4 now para 4-0-0-4 that presented at 38-4/7 weeks with complaints of active labor, spontaneous rupture of membranes around 1500. For full details on this patient please see the dictated history and physical. Patient states she began amaya around noon and they became increasingly more intense with spontaneous rupture noted around 3 PM. Patient had been receiving routine care which had been uncomplicated. Patient does have a history of a prior section with successful vaginal x 2. Patient was admitted to labor and delivery. Patient progressed to labor becoming complete and having a normal spontaneous vaginal delivery of a viable female infant at 1904, weight of 6 pounds 5.6 ounces, Apgars of 7 and 9 at 1 and 5 minutes respectively. Patient did sustain a first-degree laceration with delivery and this was repaired in the usual fashion. Patient's course has been uneventful. In this day #1 she is ambulating and voiding without difficulty. She is tolerating a regular diet without nausea or vomiting. She states her pain is well-controlled. She denies concerns. She would like discharge home at 24 hours later today. Patient Condition at Discharge: Good Plan - Discharge Summary New Discharge Prescriptions: No Action Pnv No.95/Ferrous Fum/Folic AC [ Multivitamin Tablet] 1 each PO DAILY valACYclovir HCL [Valacyclovir] 1,000 mg PO DAILY Escitalopram [Lexapro] 10 mg PO DAILY Discharge Medication List Pnv No.95/Ferrous Fum/Folic AC [ Multivitamin Tablet] 1 each PO DAILY 04/09/18 [History] Escitalopram [Lexapro] 10 mg PO DAILY 12/23/24 [History] valACYclovir HCL [Valacyclovir] 1,000 mg PO DAILY 12/23/24 [History] Follow up Appointment(s)/Referral(s): Diana Cooper DO [Doctor of Osteopathic Medicine] - 1 Week Patient Instructions/Handouts: Vaginal Delivery (GEN), Vaginal Delivery (DC) Activity/Diet/Wound Care/Special Instructions: No tub baths or intercourse until 6 weeks . [id number] ibuprofen 600 mg or 3 tablets every 6 hours as needed for pain. Routine check is to be scheduled at 6 weeks. Should she have any concerns pr ior to his appointment she is urged to call the office and be seen prior. Discharge Disposition: HOME SELF-CARE
[2024-12-24] MEDS: ACETAMINOPHEN TAB 500 MG TAB PO PRN (10:01)
[2024-12-24 16:46] VITALS: RESP 16
[2024-12-24 21:18] VITALS: BP 122/83; PULSE 98; TEMP 97.6
== END 2024-12-24 21:15 | disposition home or self-care (01) | DRG 560 ==
LOC: FBPOP 17:30 → 4FBP 17:50
PROVIDERS: ADMIT Obstetrics & Gynecology; ATTEND Obstetrics & Gynecology Obstetrics
PROC: 10E0XZZ Delivery of Products of Conception, External Approach (ICD-10-PCS; principal; 2024-12-23)
PROC: 0HQ9XZZ Repair Perineum Skin, External Approach (ICD-10-PCS; 2024-12-23)
DX: O34.211 Maternal care for low transverse scar from previous cesarean delivery (principal); O42.02 Full-term premature rupture of membranes, onset of labor within 24 hours of rupture; O70.0 First degree perineal laceration during delivery; O69.81X0 Labor and delivery complicated by cord around neck, without compression, not applicable or unspecified; O77.0 Labor and delivery complicated by meconium in amniotic fluid; F41.9 Anxiety disorder, unspecified; O99.344 Other mental disorders complicating childbirth; Z37.0 Single live birth; Z3A.38 38 weeks gestation of pregnancy; Z79.899 Other long term (current) drug therapy; Z88.5 Allergy status to narcotic agent
CPT/HCPCS: 85025; 86850; 86900; 86901; 99213